=== PATIENT | female | born 1935 | race Caucasian/White ===

== ENCOUNTER 2018-10-01 20:11 | Emergency (ER) | payer MEDICARE, OTHER ==
[~2018-10-01] VITALS: Ht 157.5 cm; Wt 76.6 kg
[2018-10-01 20:15] VITALS: Ht 157.5 cm; Wt 76.6 kg
--- NOTE | 2018-10-01 23:31 | ERD ---
ER Documentation Chief Complaint Chief Complaint [id number]; LEFT FOOT PAIN; MORE XTODAY; CHRONIC ON/OFF;NO INJ; HAS ALZHEIMERS HPI This is a 83-year-old female with a history of chronic she has a chronic foot ulcer, that she cares for at home. She has some redness over her foot for the last few days, she denies fever, denies history of trauma, denies numbness or tingling. ROS All systems reviewed and are negative except as per history of present illness. Medications Home Meds Active Scripts Cephalexin* (Keflex*) 500 Mg Capsule, 500 MG PO QID for 7 Days, CAP Prov:SHANNON DAWSON MD 10/01/18 Sulfamethoxazole/Trimethoprim* (Bactrim Ds* Tablet) 1 Each Tablet, 1 TAB PO BID, #14 TAB Prov:SHANNON DAWSON MD 10/01/18 PMhx/Soc Hx Cardiac Disorders: Yes (HTN) Hx Miscellaneous Medical Probl: Yes ("THYROID PROBLEMS" ) Hx Alcohol Use: No Hx Substance Use: No Hx Tobacco Use: No Smoking Status: Never smoker FmHx Family History: diabetes Physical Exam Vitals Vital Signs Date Temp Pulse Resp B/P (MAP) Pulse Ox O2 O2 Flow FiO2 Time Delivery Rate 10/01/18 74 18 124/97 99 Room Air 22:56 (106) 10/01/18 97.6 73 16 191/63 99 Room Air 22:06 (105) 10/01/18 98.8 80 19 187/73 96 20:15 (111) Physical Exam Const: No acute distress Head: Atraumatic Eyes: Normal Conjunctiva ENT: Normal External Ears, Nose and Mouth. Neck: Full range of motion. No meningismus. Resp: Clear to auscultation bilaterally Cardio: Regular rate and rhythm, no murmurs Abd: Soft, non tender, non distended. Normal bowel sounds Skin: No petechiae or rashes Back: No midline or flank tenderness Ext: Onychomycosis noted bilaterally, there is small superficial ulcer of the great toe, there appears to be first-degree, there is no purulent drainage, there is some erythema of the feet bilaterally, there is no crepitus, no induration, no fluctuance, sensation is intact to light touch, tibial pulses 2+ Neur: Awake and alert Psych: Normal Mood and Affect Result Diagram: 10/01/18224910/01/18 225 Results 24 hrs Laboratory Tests Test 10/01/18 22:50 White Blood Count 9.9 10^3/ul Red Blood Count 4.46 10^6/ul Hemoglobin 13.6 g/dl Hematocrit 41.7 % Mean Corpuscular Volume 93.5 fl Mean Corpuscular Hemoglobin 30.5 pg Mean Corpuscular Hemoglobin Concent 32.6 g/dl Red Cell Distribution Width 12.9 % Platelet Count 165 10^3/UL Mean Platelet Volume 11.1 fl Immature Granulocytes % 0.500 % Neutrophils % 60.0 % Lymphocytes % 28.0 % Monocytes % 8.3 % Eosinophils % 2.6 % Basophils % 0.6 % Nucleated Red Blood Cells % 0.0 /100WBC Immature Granulocytes # 0.050 10^3/ul Neutrophils # 6.0 10^3/ul Lymphocytes # 2.8 10^3/ul Monocytes # 0.8 10^3/ul Eosinophils # 0.3 10^3/ul Basophils # 0.1 10^3/ul Nucleated Red Blood Cells # 0.0 10^3/ul Sodium Level 141 mmol/L Potassium Level 4.7 mmol/L Chloride Level 108 mmol/L Carbon Dioxide Level 25 mmol/L Anion Gap 8 Blood Urea Nitrogen 40 mg/dl Creatinine 0.98 mg/dl Est Glomerular Filtrat Rate mL/min mL/min Glucose Level 102 mg/dl Calcium Level 9.1 mg/dl Procedures/MDM This is a very pleasant 83-year-old female presents for evaluation of left foot pain. She is afebrile and nontoxic-appearing, her lab workup is unremarkable, I do not suspect DVT, I do not suspect osteomyelitis, given her erythema, she is at risk for Down's of cellulitis, thus I will cover her with Bactrim and Keflex, discussed proper wound care, patient is now stable for discharge home, at discharge she was in no acute distress. Departure Diagnosis: Primary Impression: Cellulitis Site of cellulitis: unspecified site Qualified Codes: L03.90 - Cellulitis, unspecified Condition: Stable SHANNON DAWSON MD Oct 01, 2018 23:31
[2018-10-01] MEDS ORDERED: SULF1TAB31 PO (23:33)
[2018-10-01] MEDS ORDERED: CEPH-443 PO (23:33)
[2018-10-02 10:21] VITALS: BP 170/60; PULSE 78; RESP 17
== END 2018-10-02 10:30 | disposition home or self-care (01) ==
LOC: EDBD 20:11 → E/R 20:11
DX: L03.90 Cellulitis, unspecified (principal); I10 Essential (primary) hypertension
CPT/HCPCS: 36415; 80048; 85025

== ENCOUNTER 2018-10-10 14:48 | Inpatient (IN) | payer MEDICARE, OTHER ==
[~2018-10-10] VITALS: Ht 165.1 cm; Wt 75.5 kg
[~2018-10-10 14:48] MED LIST: CEPH-443 PO; SULF1TAB31 PO
[2018-10-10] MEDS ORDERED: ASPI-817 PO (17:07)
[2018-10-10] MEDS ORDERED: AMLO-147 PO (17:07)
[2018-10-10] MEDS ORDERED: GABA300C16 PO (17:08)
[2018-10-10] MEDS ORDERED: DOCU-144 PO (17:08)
[2018-10-10] MEDS ORDERED: LEVO88TA3 PO (17:09)
[2018-10-10] MEDS ORDERED: ATOR10TA65 PO (17:09)
[2018-10-10] MEDS ORDERED: HYDR-4011 PO (17:09)
--- NOTE | 2018-10-10 19:52 | ERD ---
ER Documentation Chief Complaint Chief Complaint Left foot pain HPI 83-year-old female with history of hypertension, dyslipidemia and hypothyroidism presents to the ED via ambulance for evaluation of left foot pain and redness. Patient reports a history of chronic ulcer with worsening redness and sharp, nonradiating pain especially to the fourth toe over the last several weeks. Denies trauma or injury. Patient was seen in the ED on October 01, 2017 and treated with Keflex and Bactrim without improvement. Denies chest pain, palpitations, shortness of breath or abdominal pain, nausea or vomiting. No fevers or chills. ROS All systems reviewed and are negative except as per history of present illness. Medications Home Meds Active Scripts Sulfamethoxazole/Trimethoprim* (Bactrim Ds* Tablet) 1 Each Tablet, 1 TAB PO BID, #14 TAB Prov:KARINA HUTSON 10/12/18 Reported Medications Hydrocodone/Acetaminophen ([place] 5-325 Tablet) 1 Each Tablet, 1 EACH PO NEEDED, TAB 10/10/18 Atorvastatin Calcium (Atorvastatin Calcium) 10 Mg Tablet, 10 MG PO QHS, #30 TAB 10/10/18 Levothyroxine Sodium* (Levothyroxine Sodium*) 88 Mcg Tablet, 88 MCG PO BEFORE BREAKFAST, #30 TAB 10/10/18 Gabapentin* (Gabapentin*) 300 Mg Capsule, 300 MG PO TID, #90 CAP 10/10/18 Docusate Sodium* (Colace*) 100 Mg Capsule, 100 MG PO BID, #60 CAP 10/10/18 Aspirin* (Aspirin* EC) 81 Mg Tablet.dr, 81 MG PO DAILY, TAB 10/10/18 Amlodipine Besylate* (Amlodipine Besylate*) 10 Mg Tablet, 10 MG PO DAILY, #30 TAB 10/10/18 Discontinued Scripts Cephalexin* (Keflex*) 500 Mg Capsule, 500 MG PO QID for 7 Days, CAP Prov:SHANNON DAWSON MD 10/01/18 Allergies Allergies: Coded Allergies: No Known Allergy (Unverified , 10/10/18) PMhx/Soc Reviewed in chart. As per HPI. Lives in a boarding care facility. History of Surgery: Yes (Left hip) Hx Neurological Disorder: Yes (Dementia) Hx Cardiac Disorders: Yes (HTN) Hx Psychiatric Problems: No Hx Miscellaneous Medical Probl: Yes ("THYROID PROBLEMS" ) Hx Alcohol Use: No Hx Substance Use: No Hx Tobacco Use: No Smoking Status: Never smoker FmHx No family history relevant to presenting complaint Physical Exam Vitals Vital Signs Date Temp Pulse Resp B/P (MAP) Pulse Ox O2 O2 Flow FiO2 Time Delivery Rate 10/10/18 73 22 140/92 96 Room Air 21:42 (108) 10/10/18 83 20 145/48 96 Room Air 20:34 (80) 10/10/18 99.0 73 18 156/70 98 15:11 (98) Physical Exam Const: Moderate distress, anxious Head: Atraumatic Eyes: Normal Conjunctiva. Anicteric ENT: Normal External Ears, Nose and Mouth. Neck: Full range of motion. No JVD. No meningismus. Resp: Clear to auscultation bilaterally Cardio: Regular rate and rhythm, no murmurs Abd: Soft, obese, non tender, non distended. Normal bowel sounds Skin: No petechiae or rashes Back: No midline or flank tenderness Ext: Bilateral lower extremities: No edema, calf swelling or tenderness. Pulses 4+ in all extremities. Left foot: Diffuse erythema, tenderness extending from the toes to above the ankle. No fluctuance or subcutaneous crepitus. No lymphangitic streaking. No inguinal lymphadenopathy or tenderness. Neur: Awake and alert. Cranial nerves II through XII are grossly intact. Motor and sensory equal bilaterally. No focal deficit. Psych: Anxious but not depressed. Result Diagram: 10/12/18 0452 10/12/18 0452 Results 24 hrs Laboratory Tests Test 10/10/18 18:39 White Blood Count 7.7 10^3/ul Red Blood Count 4.37 10^6/ul Hemoglobin 13.5 g/dl Hematocrit 41.1 % Mean Corpuscular Volume 94.1 fl Mean Corpuscular Hemoglobin 30.9 pg Mean Corpuscular Hemoglobin Concent 32.8 g/dl Red Cell Distribution Width 13.2 % Platelet Count 231 10^3/UL Mean Platelet Volume 10.6 fl Immature Granulocytes % 0.100 % Neutrophils % 60.7 % Lymphocytes % 28.9 % Monocytes % 6.5 % Eosinophils % 3.3 % Basophils % 0.5 % Nucleated Red Blood Cells % 0.0 /100WBC Immature Granulocytes # 0.010 10^3/ul Neutrophils # 4.7 10^3/ul Lymphocytes # 2.2 10^3/ul Monocytes # 0.5 10^3/ul Eosinophils # 0.3 10^3/ul Basophils # 0.0 10^3/ul Nucleated Red Blood Cells # 0.0 10^3/ul Sodium Level 140 mmol/L Potassium Level 4.6 mmol/L Chloride Level 108 mmol/L Carbon Dioxide Level 25 mmol/L Anion Gap 7 Blood Urea Nitrogen 27 mg/dl Creatinine 1.10 mg/dl Est Glomerular Filtrat Rate mL/min mL/min Glucose Level 102 mg/dl Calcium Level 9.6 mg/dl C-Reactive Protein < 0.5 mg/dl Current Medications Medications Dose Sig/Trisha Start Time Status Last (Trade) Ordered Route PRN Stop Time Admin Dose Reason Admin Vancomycin 250 ml @ ONCE ONCE 10/10/18 DC 10/10/18 HCl 125 mls/hr IVPB 20:00 20:02 10/10/18 21:59 Procedures/MDM DOCUMENTS REVIEWED: ED nurse, prior ED IMAGING: PROCEDURE: X-ray left foot. CLINICAL INDICATION: Cellulitis. TECHNIQUE: AP, lateral and oblique views of the left foot. COMPARISON: Plain film examination of the left foot dated 10/01/2018. FINDINGS: Demineralization limits evaluation of fine osseous detail. No evident acute fracture or dislocation. Question resorption of the tuft at the second distal phalanx, without significant exchange mechanic interval. If there is concern for osteomyelitis an MRI examination would be more sensitive and specific. Plantar and posterior dorsal calcaneal enthesophytes. The soft tissues are unr emarkable. There is no significant exchange mechanic interval since 10/01/2018. IMPRESSION: 1. Question resorption of the tuft at the second distal phalanx, without significant exchange mechanic interval. 2. If there is concern for osteomyelitis an MRI examination would be more sensitive and specific. 3. Otherwise, no acute fracture. RPTAT: [facility]U Physician Hal Date Time Electronically viewed and signed by Physician Hal on 10/10/2018 18:53 RS/ MEDICAL DECISION MAKIN-year-old female with history of hypertension, dyslipidemia and hypothyroidism presents to the ED via ambulance for evaluation of left foot pain and redness. Patient reports a history of chronic ulcer with worsening redness and sharp, nonradiating pain especially to the fourth toe over the last several weeks. CBC to evaluate for leukocytosis and anemia is unremarkable. Chemistry reveals elevated BUN/creatinine mildly worsening since previous ED visit on October 01 but no acute electrolyte abnormalities. Radiographs of the left foot to evaluate for fracture, osteomyelitis and subcutaneous emphysema reveals findings that may be secondary to osteomyelitis and further evaluation with MRI should be considered. No evidence of abscess or necrotizing fasciitis. No criteria for systemic inflammatory response syndrome or sepsis. IV vancomycin administered. Poorly controlled hypertension without evidence of hypertensive urgency or emergency. Patient with worsening cellulitis failed outpatient antibiotics will require admission for local wound care, antibiotics, further evaluation and management. PATIENT CARE TRANSITIONED: Time: 2009, Dr. Todd Counseled patient regarding diagnosis, diagnostic results and plan for admission. Departure Diagnosis: Primary Impression: Foot pain Laterality: left Qualified Codes: M79.672 - Pain in left foot Additional Impressions: Cellulitis of left foot Hypertension Hypertension type: essential hypertension Qualified Codes: I10 - Essential (primary) hypertension Condition: Serious GARRISON PEREZ MD Oct 10, 2018 19:52
[2018-10-10] MEDS ORDERED: VANCOMYCIN 1 GM (PMX) 250 ML IVPB ONE (20:00)
[2018-10-10] MEDS ORDERED: ONDANSETRON 4 MG INJ IV PRN (22:00)
[2018-10-10] MEDS ORDERED: ACETAMINOPHEN 325 MG TAB PO PRN (22:00)
[2018-10-10 22:50] VITALS: BP 164/77; PULSE 64; RESP 16
[2018-10-10 22:53] VITALS: Ht 165.1 cm; Wt 75.5 kg
--- NOTE | 2018-10-10 23:50 | HP ---
Date/Time of Note Date/Time of Note DATE: 10/10/18 TIME: 23:50 Assessment/Plan VTE Prophylaxis Risk score (from Ns)>0 risk: 4 SCD applied (from Ns): Yes Pharmacological prophylaxis: heparin Lines/Catheters IV Catheter Type (from Nrs): Saline Lock Assessment/Plan Assessment/Plan 1. Left foot cellulitis: Failed outpatient management -IV antibiotic 2. Hypertension: Continue home meds. Adjust as needed 3. Hypothyroidism: Continue Synthroid 4. Dyslipidemia: Continue statin 5. 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 Additional workup including renal ultrasound and nephrology consult as needed Result Diagram: 10/10/18 1839 10/10/18 1839 Results 24hrs Laboratory Tests Test 10/10/18 18:39 White Blood Count 7.7 # Red Blood Count 4.37 Hemoglobin 13.5 Hematocrit 41.1 Mean Corpuscular Volume 94.1 Mean Corpuscular Hemoglobin 30.9 Mean Corpuscular Hemoglobin Concent 32.8 Red Cell Distribution Width 13.2 Platelet Count 231 # Mean Platelet Volume 10.6 H Immature Granulocytes % 0.100 Neutrophils % 60.7 Lymphocytes % 28.9 Monocytes % 6.5 Eosinophils % 3.3 Basophils % 0.5 Nucleated Red Blood Cells % 0.0 Immature Granulocytes # 0.010 Neutrophils # 4.7 Lymphocytes # 2.2 Monocytes # 0.5 Eosinophils # 0.3 Basophils # 0.0 Nucleated Red Blood Cells # 0.0 Sodium Level 140 Potassium Level 4.6 Chloride Level 108 Carbon Dioxide Level 25 Anion Gap 7 Blood Urea Nitrogen 27 H Creatinine 1.10 H Est Glomerular Filtrat Rate mL/min Glucose Level 102 Calcium Level 9.6 C-Reactive Protein < 0.5 HPI/ROS Admit Date/Time Admit Date/Time Oct 10, 2018 at 21:49 Hx of Present Illness This is an 83-year-old female with a history of hypertension, dyslipidemia, hypothyroidism and a likely bilateral PVD who presents the ER complaining of left foot redness and tenderness. She said she first noticed it about a month ago for which she went to the hospital and was diagnosed with a cellulitis. She took antibiotic with initial improvement but recurred and as such she decided to come to the hospital for evaluation. In the ER, x-ray of the left foot shows the followin. Question resorption of the tuft at the second distal phalanx, without significant foreign exchange trader interval. 2. If there is concern for osteomyelitis an MRI examination would be more sensitive and specific. 3. Otherwise, no acute fracture. PMH/Family/Social Past Medical History Medications Current Medications Ondansetron HCl (Zofran Inj) 4 mg BRIDGE ORDER PRN IV NAUSEA AND/OR VOMITING; Start 10/10/18 at 22:00; Stop 10/11/18 at 21:59 Acetaminophen (Tylenol Tab) 650 mg ER BRIDGE PRN PO MILD PAIN(1-3)OR ELEVATED TEMP; Start 10/10/18 at 22:00; Stop 10/11/18 at 21:59 Coded Allergies: No Known Allergy (Unverified , 10/10/18) Family History Significant Family History: no pertinent family hx Social History Alcohol Use: none Smoking Status: Never smoker Drug Use: none Exam/Review of Systems Vital Signs Vitals Vital Signs Date Temp Pulse Resp B/P (MAP) Pulse Ox O2 O2 Flow FiO2 Time Delivery Rate 10/10/18 97.9 64 16 164/77 98 22:50 (106) 10/10/18 Room Air 22:28 Exam Exam Constitutional: alert, oriented, well developed, other Head: normocephalic, atraumatic Respiratory: normal air movement Cardiovascular: regular rate and rhythm Gastrointestinal: soft Extremities: normal pulses PMH: see HPI PSH: see HPI . UMANG MEHTA MD Oct 10, 2018 23:50
[2018-10-11] MEDS ORDERED: HYDROCODONE/APAP (5/325) TAB PO PRN ×2
[2018-10-11] MEDS ORDERED: ONDANSETRON 4 MG INJ IV PRN
[2018-10-11] MEDS ORDERED: ACETAMINOPHEN 325 MG TAB PO PRN
[2018-10-11] MEDS ORDERED: ALBUTEROL/IPRATROPIUM (NEB) 3 ML AMP HHN PRN
[2018-10-11] MEDS ORDERED: NACL 0.9% 3 ML SYG IV SCH
[2018-10-11 01:37] VITALS: BP 150/67; PULSE 66; RESP 18
[2018-10-11] MEDS: LEVOTHYROXINE 88 MCG TAB PO SCH (06:22)
[2018-10-11 07:36] VITALS: BP 197/77; PULSE 66; RESP 16
[2018-10-11] MEDS ORDERED: TRIMETHOPRIM/SULFAMETHOX (DS) TAB PO SCH (09:00)
[2018-10-11] MEDS: HEPARIN 5,000 UNIT/1 ML VIAL SC SCH ×2 (09:00→21:28)
[2018-10-11] MEDS: GABAPENTIN 300 MG CAP PO SCH ×3 (09:03→21:21)
[2018-10-11] MEDS: DOCUSATE SODIUM 100 MG CAP PO SCH ×2 (09:03→21:21)
[2018-10-11] MEDS: ASPIRIN (EC) 81 MG TAB PO SCH (09:04)
[2018-10-11] MEDS: AMLODIPINE 10 MG TAB PO SCH (09:04)
[2018-10-11] MEDS: hydrALAzine 20 MG INJ IV PRN (09:11)
[2018-10-11 10:27] VITALS: BP 163/73; PULSE 80; RESP 20
--- NOTE | 2018-10-11 11:57 | PN ---
Date/Time of Note Date/Time of Note DATE: 10/11/18 TIME: 11:54 Assessment/Plan VTE Prophylaxis Risk score (from [facility])>0 risk: 5 SCD applied (from [facility]): No SCD contraindicated: other Pharmacological prophylaxis: heparin Lines/Catheters IV Catheter Type (from [facility]): Saline Lock Assessment/Plan Hospital Course S: Patient had no acute events overnight. O: VS - see below PE: General: No acute distress Head: Atraumatic Eyes: Normal Conjunctiva ENT: Normal External Ears, Nose and Mouth. Neck: Full range of motion. No meningismus. Resp: Clear to auscultation bilaterally Cardio: Regular rate and rhythm, no murmurs Abd: Soft, non tender, non distended. Normal bowel sounds Ext: Left foot red but not warm, dry skin noted Neur: No focal deficits Assessment/Plan: 83-year-old female who presents with: 1. Left foot cellulitis: Failed outpatient management. White blood cell count is normal, no fevers, x-ray foot results noted. -For now continue IV antibiotic -Follow final culture results, and also will get wound care consult 2. Hypertension: Stable - continue home meds. Adjust as needed 3. Hypothyroidism: No present issues - continue Synthroid 4. Dyslipidemia: No present issues - continue statin 5. Presumed KOTA: Creatinine slightly elevated at 1.13. -Continue IVF for now. -If creatinine worsens, consider additional workup including renal ultrasound and nephrology consult as needed Dispo: Likely home in 24 hours after IV antibiotics given, wound care consult obtained, and if kidney function improves with fluids Result Diagram: 10/11/18 0435 10/11/18 0435 Results 24hrs Laboratory Tests Test 10/10/18 18:39 10/11/18 04:35 White Blood Count 7.7 # 6.2 Red Blood Count 4.37 4.14 L Hemoglobin 13.5 12.7 Hematocrit 41.1 39.0 Mean Corpuscular Volume 94.1 94.2 Mean Corpuscular Hemoglobin 30.9 30.7 Mean Corpuscular Hemoglobin Concent 32.8 32.6 Red Cell Distribution Width 13.2 13.4 Platelet Count 231 # 218 Mean Platelet Volume 10.6 H 10.6 H Immature Granulocytes % 0.100 0.200 Neutrophils % 60.7 55.6 Lymphocytes % 28.9 30.1 Monocytes % 6.5 9.4 Eosinophils % 3.3 3.9 Basophils % 0.5 0.8 Nucleated Red Blood Cells % 0.0 0.0 Immature Granulocytes # 0.010 0.010 Neutrophils # 4.7 3.4 Lymphocytes # 2.2 1.9 Monocytes # 0.5 0.6 Eosinophils # 0.3 0.2 Basophils # 0.0 0.1 Nucleated Red Blood Cells # 0.0 0.0 Sodium Level 140 146 H Potassium Level 4.6 4.8 Chloride Level 108 109 Carbon Dioxide Level 25 24 Anion Gap 7 13 Blood Urea Nitrogen 27 H 29 H Creatinine 1.10 H 1.13 H Est Glomerular Filtrat Rate mL/min Glucose Level 102 83 Calcium Level 9.6 9.2 C-Reactive Protein < 0.5 Phosphorus Level 4.3 Magnesium Level 2.1 Total Bilirubin 0.3 Direct Bilirubin 0.00 Indirect Bilirubin 0.3 Aspartate Amino Transf (AST/SGOT) 28 Alanine Aminotransferase (ALT/SGPT) 17 Alkaline Phosphatase 62 Total Protein 7.1 Albumin 3.7 Globulin 3.40 H Albumin/Globulin Ratio 1.08 Exam/Review of Systems Vital Signs Vitals Vital Signs Date Temp Pulse Resp B/P (MAP) Pulse Ox O2 O2 Flow FiO2 Time Delivery Rate 10/11/18 80 20 163/73 10:27 (103) 10/11/18 98.4 97 07:36 10/10/18 Room Air 22:28 Intake and Output 10/10/18 10/10/18 10/11/18 1515:00 23:00 07:00 IntakeIntake Total 250 ml BalanceBalance 250 ml Medications Medications Current Medications Ondansetron HCl (Zofran Inj) 4 mg BRIDGE ORDER PRN IV NAUSEA AND/OR VOMITING; Start 10/10/18 at 22:00; Stop 10/11/18 at 21:59 IV Flush (NS 3 ml) 3 ml PER PROTOCOL IV ; Start 10/11/18 at 00:00 Ondansetron HCl (Zofran Inj) 4 mg Q6H PRN IV NAUSEA AND/OR VOMITING; Start 10/11/18 at 00:00 Acetaminophen (Tylenol Tab) 650 mg Q6H PRN PO PAIN LEVEL 1-3 OR FEVER; Start 10/11/18 at 00:00 Acetaminophen/ Hydrocodone Bitart ([place] (5/325)) 1 tab Q6H PRN PO MODERATE PAIN LEVEL 4-6; Start 10/11/18 at 00:00 Acetaminophen/ Hydrocodone Bitart ([place] (5/325)) 2 tab Q6H PRN PO SEVERE PAIN LEVEL 7-10; Start 10/11/18 at 00:00 Heparin Sodium (Porcine) (Heparin (5000 Units/1ml)) 5,000 unit Q12 SC ; Start 10/11/18 at 09:00 Albuterol/ Ipratropium (Duoneb) 3 ml Q2H RESP THERAPY PRN HHN SHORTNESS OF BREATH; Start 10/11/18 at 00:00 Amlodipine Besylate (Norvasc) 10 mg DAILY PO Last administered on 10/11/18at 09 :04; Admin Dose 10 MG; Start 10/11/18 at 09:00 Aspirin (Halfprin) 81 mg DAILY PO Last administered on 10/11/18at 09:04; Admin Dose 81 MG; Start 10/11/18 at 09:00 Atorvastatin Calcium (Lipitor) 10 mg QHS PO ; Start 10/11/18 at 21:00 Docusate Sodium (Colace) 100 mg BID PO Last administered on 10/11/18at 09:03; Admin Dose 100 MG; Start 10/11/18 at 09:00 Gabapentin (Neurontin) 300 mg TID PO Last administered on 10/11/18at 09:03; Admin Dose 300 MG; Start 10/11/18 at 09:00 Levothyroxine Sodium (Synthroid) 88 mcg BEFORE BREAKFAST PO Last administered on 10/11/18at 06:22; Admin Dose 88 MCG; Start 10/11/18 at 07:00 Trimethoprim/ Sulfamethoxazole (Bactrim (Ds)) 1 tab BID PO Last administered on 10/11/18at 09:04; Admin Dose 1 TAB; Start 10/11/18 at 09:00; Status Hold Hydralazine HCl (Apresoline) 10 mg Q4H PRN IV ELEVATED BLOOD PRESSURE Last administered on 10/11/18at 09:11; Admin Dose 10 MG; Start 10/11/18 at 08:37 Sodium Chloride 1,000 ml @ 100 mls/hr Q10H IV ; Start 10/11/18 at 12:00; Statu s UNV Ceftriaxone Sodium 50 ml @ 100 mls/hr Q24H IVPB ; Start 10/11/18 at 12:00; Status JAXONV KARINA HUTSON Oct 11, 2018 11:57
[2018-10-11] MEDS: CEFTRIAXONE 1 GM/50 ML (PMX) 50 ML IVPB SCH (13:08)
[2018-10-11] MEDS: SOD CHLORIDE 0.45% 1,000 ML IV SCH ×2 (13:09→23:47)
[2018-10-11 13:56] VITALS: BP 147/67; PULSE 77; RESP 16
[2018-10-11 19:51] VITALS: BP 157/66; PULSE 67; RESP 18
[2018-10-11] MEDS ORDERED: ATORVASTATIN 10 MG TAB PO SCH (21:00)
[2018-10-12 01:12] VITALS: BP 165/91; PULSE 72; RESP 16
[2018-10-12] MEDS: hydrALAzine 20 MG INJ IV PRN ×2 (05:38→17:16)
[2018-10-12] MEDS: LEVOTHYROXINE 88 MCG TAB PO SCH (05:39)
[2018-10-12 07:44] VITALS: BP 165/70; PULSE 73; RESP 18
[2018-10-12] MEDS: ASPIRIN (EC) 81 MG TAB PO SCH (08:58)
[2018-10-12] MEDS: DOCUSATE SODIUM 100 MG CAP PO SCH (08:58)
[2018-10-12] MEDS: AMLODIPINE 10 MG TAB PO SCH (08:58)
[2018-10-12] MEDS: GABAPENTIN 300 MG CAP PO SCH ×2 (08:58→12:27)
[2018-10-12] MEDS: HEPARIN 5,000 UNIT/1 ML VIAL SC SCH (09:04)
[2018-10-12] MEDS: SOD CHLORIDE 0.45% 1,000 ML IV SCH (09:15)
[2018-10-12] MEDS: CEFTRIAXONE 1 GM/50 ML (PMX) 50 ML IVPB SCH (11:50)
--- NOTE | 2018-10-12 13:06 | PDOCDIS ---
Discharge Instructions CONDITION [id number] Patient Condition: [id number] Stable HOME CARE INSTRUCTIONS: [id number] Diet Instructions: [id number] Low Fat /Cholesterol ACTIVITY: [id number] Activity Restrictions: [id number] Slowly Increase Activity Rest between Activity Avoid heavy lifting FOLLOW UP/APPOINTMENTS Follow-up Plan Please take your medication as prescribed, see your doctor in the clinic next 1 week. KARINA HUTSON Oct 12, 2018 13:06
[2018-10-12] MEDS ORDERED: SULF1TAB31 PO (13:07)
--- NOTE | 2018-10-12 13:14 | DS ---
Date/Time of Note Date/Time of Note DATE: 10/12/18 TIME: 13:11 Discharge Summary Admission/Discharge Info Admit Date/Time Oct 10, 2018 at 21:49 Discharge Date/Time Discharge Diagnosis 1. Left foot cellulitis: Now improved, initially failed outpatient management 2. Hypertension: Stable 3. Hypothyroidism 4. Dyslipidemia 5. KOTA: Resolved now Patient Condition: Stable Hx of Present Illness 83-year-old female with a history of hypertension, dyslipidemia, hypothyroidism and a likely bilateral PVD who presents the ER complaining of left foot redness and tenderness. She said she first noticed it about a month ago for which she went to the hospital and was diagnosed with a cellulitis. She took antibiotic with initial improvement but recurred and as such she decided to come to the hospital for evaluation. In the ER, x-ray of the left foot shows the followin. Question resorption of the tuft at the second distal phalanx, without significant blade changer interval. 2. If there is concern for osteomyelitis an MRI examination would be more sensitive and specific. 3. Otherwise, no acute fracture. Hospital Course The patient was admitted to medical surgical unit. She was placed on IV antibiotics and IV fluids. Her renal insufficiency resolved. Regarding her cellulitis, this was also thought to be possibly more of an erysipelas. Her white blood cell count remained stable, she had no fevers. Her redness symptoms improved. She was able to ambulate after being seen by physical therapy team, tolerated p.o. diet. We are waiting for the wound nurse to see the patient since she did have some dry skin on the lower extremity, however once that is performed patient will be discharged home today improved condition. See below for full list of discharge medications. Home Meds Active Scripts Sulfamethoxazole/Trimethoprim* (Bactrim Ds* Tablet) 1 Each Tablet, 1 TAB PO BID, #14 TAB Prov:KARINA HUTSON S. 10/12/18 Reported Medications Hydrocodone/Acetaminophen ([place] 5-325 Tablet) 1 Each Tablet, 1 EACH PO NEEDED, TAB 10/10/18 Atorvastatin Calcium (Atorvastatin Calcium) 10 Mg Tablet, 10 MG PO QHS, #30 TAB 10/10/18 Levothyroxine Sodium* (Levothyroxine Sodium*) 88 Mcg Tablet, 88 MCG PO BEFORE BREAKFAST, #30 TAB 10/10/18 Gabapentin* (Gabapentin*) 300 Mg Capsule, 300 MG PO TID, #90 CAP 10/10/18 Docusate Sodium* (Colace*) 100 Mg Capsule, 100 MG PO BID, #60 CAP 10/10/18 Aspirin* (Aspirin* EC) 81 Mg Tablet.dr, 81 MG PO DAILY, TAB 10/10/18 Amlodipine Besylate* (Amlodipine Besylate*) 10 Mg Tablet, 10 MG PO DAILY, #30 TAB 10/10/18 Discontinued Scripts Cephalexin* (Keflex*) 500 Mg Capsule, 500 MG PO QID for 7 Days, CAP Prov:SHANNON DAWSON MD 10/01/18 Follow-up Plan Please take your medication as prescribed, see your doctor in the clinic next 1 week. Primary Care Provider Not On Staff Doctor Time spent on discharge: > 30 minutes Pending Labs Laboratory Tests Test 10/12/18 04:52 White Blood Count 6.1 10^3/ul (4.8-10.8) Red Blood Count 4.21 10^6/ul (4.20-5.40) Hemoglobin 13.0 g/dl (12.0-16.0) Hematocrit 39.6 % (37.0-47.0) Mean Corpuscular Volume 94.1 fl (82.0-101.0) Mean Corpuscular Hemoglobin 30.9 pg (29.0-33.0) Mean Corpuscular Hemoglobin Concent 32.8 g/dl (32.0-37.0) Red Cell Distribution Width 13.5 % (11.5-14.5) Platelet Count 209 10^3/UL (140-415) Mean Platelet Volume 10.5 fl (7.4-10.4) Immature Granulocytes % 0.200 % (0.001-0.429) Neutrophils % 49.9 % (39.0-77.0) Lymphocytes % 38.1 % (15.0-51.0) Monocytes % 7.2 % (0.0-11.0) Eosinophils % 3.8 % (0.0-7.0) Basophils % 0.8 % (0.0-2.0) Nucleated Red Blood Cells % 0.0 /100WBC (0.0-0.0) Immature Granulocytes # 0.010 10^3/ul (0.0-0.031) Neutrophils # 3.0 10^3/ul (1.6-7.5) Lymphocytes # 2.3 10^3/ul (0.8-2.9) Monocytes # 0.4 10^3/ul (0.3-0.9) Eosinophils # 0.2 10^3/ul (0.0-0.5) Basophils # 0.1 10^3/ul (0.0-0.1) Nucleated Red Blood Cells # 0.0 10^3/ul (0.0-0.0) Sodium Level 141 mmol/L (135-144) Potassium Level 4.3 mmol/L (3.5-5.1) Chloride Level 109 mmol/L (97-110) Carbon Dioxide Level 25 mmol/L (21-31) Anion Gap 7 (5-13) Blood Urea Nitrogen 22 mg/dl (7-20) Creatinine 0.92 mg/dl (0.44-1.00) Est Glomerular Filtrat Rate mL/min mL/min (>60) Glucose Level 89 mg/dl (70-220) Calcium Level 9.0 mg/dl (8.4-10.2) KARINA HUTSON Oct 12, 2018 13:13
[2018-10-12 14:26] VITALS: BP 167/66; PULSE 72; RESP 18
[2018-10-12 17:27] VITALS: BP 138/64; PULSE 72
== END 2018-10-12 17:30 | disposition home or self-care (01) | DRG 603 ==
LOC: E/R 14:48 → 2NE 21:49
PROVIDERS: ADMIT Internal Medicine; ATTEND Hospitalist
DX: L03.116 Cellulitis of left lower limb (principal); N17.9 Acute kidney failure, unspecified; I10 Essential (primary) hypertension; E03.9 Hypothyroidism, unspecified; E78.5 Hyperlipidemia, unspecified; I73.9 Peripheral vascular disease, unspecified
CPT/HCPCS: 80048; 80053; 83036; 83735; 84100; 85025; 86140; 96365; 96366; 97161; J0360; J0696; J1644; J3370

== ENCOUNTER 2019-02-05 01:05 | Inpatient (IN) | payer MEDICARE, OTHER ==
[~2019-02-05] VITALS: Ht 162.6 cm; Wt 76.9 kg
[~2019-02-05 01:05] MED LIST changes: +AMLO-147 PO; +ASPI-817 PO; +ATOR10TA65 PO; -CEPH-443 PO; +DOCU-144 PO; +GABA300C16 PO; +HYDR-4011 PO; +LEVO88TA3 PO
[2019-02-05] MEDS ORDERED: PIPER-TAZO 3.375 GM IV (PMX) 100 ML IVPB STA (01:18)
[2019-02-05] MEDS ORDERED: VANCOMYCIN 1 GM (PMX) 250 ML IVPB STA (01:18)
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
[2019-02-05] MEDS ORDERED: morphine 4 MG/ML VIAL IV STA (01:50)
[2019-02-05 03:10] VITALS: BP 150/67; PULSE 69; RESP 19
[2019-02-05 03:13] VITALS: Ht 162.6 cm; Wt 76.9 kg
[2019-02-05] MEDS ORDERED: NACL 0.9% 3 ML SYG IV SCH (04:30)
[2019-02-05] MEDS ORDERED: ONDANSETRON 4 MG INJ IV PRN (04:30)
[2019-02-05] MEDS ORDERED: HYDROCODONE/APAP (5/325) TAB PO PRN ×2 (04:30)
[2019-02-05] MEDS ORDERED: VANCOMYCIN IV PER PHARMACY XX SCH (05:30)
[2019-02-05] MEDS ORDERED: VANCOMYCIN HCL 1.5 GM in SOD CHLORIDE 0.9% 250 ML IVPB SCH ×2 (06:00→12:00)
--- NOTE | 2019-02-05 06:13 | HP ---
Date/Time of Note Date/Time of Note DATE: 02/05/19 TIME: 06:09 Assessment/Plan VTE Prophylaxis Pharmacological prophylaxis: heparin Lines/Catheters IV Catheter Type (from Nrsg): [place] Assessment/Plan Assessment/Plan 1. Right foot cellulitis -IV antibiotic 2. Hypertension: Continue home meds. Adjust as needed 3. Hypothyroidism: Continue Synthroid 4. Dyslipidemia: Continue statin Result Diagram: 02/05/19 0143 02/05/19 0143 Results 24hrs Laboratory Tests Test 02/05/19 01:39 02/05/19 01:40 02/05/19 01:43 02/05/19 04:33 Bedside Glucose 98 POC Venous Lactate 0.7 White Blood Count 9.1 # Red Blood Count 4.44 Hemoglobin 13.5 Hematocrit 40.7 Mean Corpuscular 91.7 Volume Mean Corpuscular 30.4 Hemoglobin Mean Corpuscular 33.2 Hemoglobin Concent Red Cell 13.0 Distribution Width Platelet Count 255 # Mean Platelet Volume 11.1 H Immature 0.300 Granulocytes % Neutrophils % 65.1 Lymphocytes % 24.1 Monocytes % 8.1 Eosinophils % 2.0 Basophils % 0.4 Nucleated Red Blood 0.0 Cells % Immature 0.030 Granulocytes # Neutrophils # 5.9 Lymphocytes # 2.2 Monocytes # 0.7 Eosinophils # 0.2 Basophils # 0.0 Nucleated Red Blood 0.0 Cells # Erythrocyte 48 H Sedimentation Rate Prothrombin Time 13.1 Prothrombin Time 1.0 Ratio INR International 0.98 Normalized Ratio Activated 29.0 Partial Thromboplast Time Sodium Level 142 Potassium Level 4.4 Chloride Level 106 Carbon Dioxide Level 26 Anion Gap 10 Blood Urea Nitrogen 27 H Creatinine 0.81 Est Glomerular Filtrat Rate mL/min Glucose Level 101 Lactic Acid Level 1.1 1.1 Calcium Level 9.5 Total Bilirubin 0.4 Direct Bilirubin 0.00 Indirect Bilirubin 0.4 Aspartate Amino 23 Transf (AST/SGOT) Alanine 22 Aminotransferase (AL T/SGPT) Alkaline Phosphatase 88 Troponin I < 0.012 C-Reactive Protein 1.6 H Total Protein 7.9 Albumin 3.9 Globulin 4.00 H Albumin/Globulin 0.97 Ratio HPI/ROS Admit Date/Time Admit Date/Time February 05, 2019 at 02:16 Hx of Present Illness Patient is an 83-year-old female with a history of hypertension, dyslipidemia, hypothyroidism in the left foot cellulitis who presents the ER complaining of left foot swelling, tenderness and erythema. Patient was admitted here in September of this year and was treated for left foot cellulitis. She has a significant onychomycosis. On presents the ER, she was febrile, WBC WNL. Venous study negative for DVT and x-ray of the right foot shows cellulitis without osteomyelitis PMH/Family/Social Past Medical History Medical History: high cholesterol, hypertension, hypothyroid Medications Current Medications IV Flush (NS 3 ml) 3 ml PER PROTOCOL IV ; Start 02/05/19 at 04:30 Ondansetron HCl (Zofran Inj) 4 mg Q6H PRN IV NAUSEA/VOMITING; Start 02/05/19 at 04:30 Acetaminophen (Tylenol Tab) 650 mg Q6H PRN PO .PAIN 1-3 OR TEMP; Start 02/05/19 at 04:30 Acetaminophen/ Hydrocodone Bitart ([place] (5/325)) 1 tab Q6H PRN PO .MOD PAIN 4- 6; Start 02/05/19 at 04:30 Acetaminophen/ Hydrocodone Bitart ([place] (5/325)) 2 tab Q6H PRN PO .SEVERE PAIN 7-10; Start 02/05/19 at 04:30 Amlodipine Besylate (Norvasc) 10 mg DAILY PO ; Start 02/05/19 at 09:00 Aspirin (Halfprin) 81 mg DAILY PO ; Start 02/05/19 at 09:00 Atorvastatin Calcium (Lipitor) 10 mg QHS PO ; Start 02/05/19 at 21:00 Docusate Sodium (Colace) 100 mg BID PO ; Start 02/05/19 at 09:00 Gabapentin (Neurontin) 300 mg TID PO ; Start 02/05/19 at 09:00 Levothyroxine Sodium (Synthroid) 88 mcg BEFORE BREAKFAST PO ; Start 02/05/19 at 07:00 Vancomycin HCl (Vanco Iv Per Pharmacy) VANCOMYCIN PER PHARMACY PER PROTOCOL XX ; Start 02/05/19 at 05:30 Ceftriaxone Sodium 50 ml @ 100 mls/hr DAILY IVPB ; Start 02/05/19 at 09:00 Vancomycin HCl 1.5 gm/Sodium Chloride 250 ml @ 83.333 mls/ hr ONCE IVPB Last administered on 02/05/19at 06:08; Admin Dose 83.333 MLS/HR; Start 02/05/19 at 06:00; Stop 02/05/19 at 08:59 Coded Allergies: No Known Allergy (Unverified , 10/10/18) Past Surgical History Past Surgical Hx: other (See HPI) Family History Significant Family History: no pertinent family hx Social History Alcohol Use: none Smoking Status: Never smoker Drug Use: none Exam/Review of Systems Vital Signs Vitals Vital Signs Date Temp Pulse Resp B/P (MAP) Pulse Ox O2 O2 Flow FiO2 Time Delivery Rate 02/05/19 98.4 69 19 150/67 98 Room Air 03:10 (94) Exam Constitutional: other (No acute distress) Head: normocephalic, atraumatic Eyes: EOMI, PERRL Respiratory: clear to auscultation, normal air movement Cardiovascular: regular rate and rhythm, nl pulses Gastrointestinal: soft, non-tender Extremities: other (Left foot swelling and erythema) UMANG MEHTA MD February 05, 2019 06:12
[2019-02-05] MEDS: LEVOTHYROXINE 88 MCG TAB PO SCH (06:24)
[2019-02-05 07:41] VITALS: BP 167/67; PULSE 58; RESP 18
[2019-02-05] MEDS: CEFTRIAXONE 1 GM/50 ML (PMX) 50 ML IVPB SCH (08:55)
[2019-02-05] MEDS: DOCUSATE SODIUM 100 MG CAP PO SCH ×2 (08:55→21:00)
[2019-02-05] MEDS: GABAPENTIN 300 MG CAP PO SCH ×3 (08:56→21:01)
[2019-02-05] MEDS: ASPIRIN (EC) 81 MG TAB PO SCH (08:56)
[2019-02-05] MEDS: AMLODIPINE 10 MG TAB PO SCH (08:56)
--- NOTE | 2019-02-05 11:55 | QN ---
Documentation Comment 83 yo F w/ recent left foot cellulitis,htn,dyslipidemia,neuropathy, hypothyroid admitted for Rt foot cellulitis.. Patient with no palpable pulse appreciated on right DP. At this time, we we will proceed with right lower extremity arterial/venous study. Podiatry consult and consider vascular evaluation depending arterial studies. Continue antimicrobials. Case discussed with Dr. Hodges. JULY JOHNSON NP February 05, 2019 11:55
--- NOTE | 2019-02-05 13:50 | CONS ---
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 Patient had negative DVT findings. Non invasive arterial studies pending. Patient will likely need a vascular consult for evaluation. Continue with IV abx per recommendations. Betadine dressings to the right foot partial thickness wound site with dry sterile dressings. Consultation Date/Type/Reason Admit Date/Time February 05, 2019 at 02:16 Date/Time of Note DATE: 02/05/19 TIME: 13:45 Hx of Present Illness 83-year-old female with a history of hypertension, dyslipidemia, and hypothyroidism, presents to the floor with complaint of pain to bilateral feet right worse than left and concern for cellulitis to the right foot. Patient was treated previously for cellulitis to the feet back in September. Patient also mentioned that she has peripheral vascular disease and that she had followed a specialist but does not remember the name or location of the follow up. It is also difficult to discern whether or not she had any open ulcerations in the past. ROS Negative except for HPI Past Medical History Medical History: high cholesterol, hypertension, hypothyroid Home Meds Active Scripts Sulfamethoxazole/Trimethoprim* (Bactrim Ds* Tablet) 1 Each Tablet, 1 TAB PO BID, #14 TAB Prov:KARINA HUTSON 10/12/18 Reported Medications Hydrocodone/Acetaminophen ([place] 5-325 Tablet) 1 Each Tablet, 1 EACH PO NEEDED, TAB 10/10/18 Atorvastatin Calcium (Atorvastatin Calcium) 10 Mg Tablet, 10 MG PO QHS, #30 TAB 10/10/18 Levothyroxine Sodium* (Levothyroxine Sodium*) 88 Mcg Tablet, 88 MCG PO BEFORE BREAKFAST, #30 TAB 10/10/18 Gabapentin* (Gabapentin*) 300 Mg Capsule, 300 MG PO TID, #90 CAP 10/10/18 Docusate Sodium* (Colace*) 100 Mg Capsule, 100 MG PO BID, #60 CAP 10/10/18 Aspirin* (Aspirin* EC) 81 Mg Tablet.dr, 81 MG PO DAILY, TAB 10/10/18 Amlodipine Besylate* (Amlodipine Besylate*) 10 Mg Tablet, 10 MG PO DAILY, #30 TAB 10/10/18 Medications Current Medications IV Flush (NS 3 ml) 3 ml PER PROTOCOL IV ; Start 02/05/19 at 04:30 Ondansetron HCl (Zofran Inj) 4 mg Q6H PRN IV NAUSEA/VOMITING; Start 02/05/19 at 04:30 Acetaminophen (Tylenol Tab) 650 mg Q6H PRN PO .PAIN 1-3 OR TEMP; Start 02/05/19 at 04:30 Acetaminophen/ Hydrocodone Bitart ([place] (5/325)) 1 tab Q6H PRN PO .MOD PAIN 4- 6 Last administered on 02/05/19at 09:10; Admin Dose 1 TAB; Start 02/05/19 at 04:30 Acetaminophen/ Hydrocodone Bitart ([place] (5/325)) 2 tab Q6H PRN PO .SEVERE PAIN 7-10; Start 02/05/19 at 04:30 Amlodipine Besylate (Norvasc) 10 mg DAILY PO Last administered on 02/05/19at 08:56; Admin Dose 10 MG; Start 02/05/19 at 09:00 Aspirin (Halfprin) 81 mg DAILY PO Last administered on 02/05/19at 08:56; Admin Dose 81 MG; Start 02/05/19 at 09:00 Atorvastatin Calcium (Lipitor) 10 mg QHS PO ; Start 02/05/19 at 21:00 Docusate Sodium (Colace) 100 mg BID PO Last administered on 02/05/19at 08:55; Admin Dose 100 MG; Start 02/05/19 at 09:00 Gabapentin (Neurontin) 300 mg TID PO Last administered on 02/05/19at 08:56; Admin Dose 300 MG; Start 02/05/19 at 09:00 Levothyroxine Sodium (Synthroid) 88 mcg BEFORE BREAKFAST PO Last administered on 02/05/19at 06:24; Admin Dose 88 MCG; Start 02/05/19 at 07:00 Vancomycin HCl (Vanco Iv Per Pharmacy) VANCOMYCIN PER PHARMACY PER PROTOCOL XX ; Start 02/05/19 at 05:30 Ceftriaxone Sodium 50 ml @ 100 mls/hr DAILY IVPB Last administered on 02/05/19at 08:55; Admin Dose 100 MLS/HR; Start 02/05/19 at 09:00 Allergies: Coded Allergies: No Known Allergy (Unverified , 10/10/18) Past Surgical History Past Surgical Hx: other (See HPI) Social History Alcohol Use: none Smoking Status: Never smoker Drug Use: none Exam/Review of Systems Exam Vitals Vital Signs Date Temp Pulse Resp B/P (MAP) Pulse Ox O2 O2 Flow FiO2 Time Delivery Rate 02/05/19 97.7 58 18 167/67 95 Room Air 07:41 (100) Exam Non palpable DP/PT pulses Right non palpable popliteal pulse Left weakly palpable popliteal pulse Protective sensations intact Pain on palpation to bilateral digits Erythema to the right lower extremity digits Right 4th webspace partial thickness ulcer 1 x 1 x 0.1cm granular, maceration appreciated, no purulent drainage Muscle strength 4/5 bilateral feet in all compartments of the foot. Mycotic thickened toe nails, white scaling lesions in mocassin distribution. Foot X-ray IMPRESSION: 1. Cellulitis without evidence of osteomyelitis. 2. Mild degenerative narrowing of the intertarsal, tarsometatarsal, and interphalangeal joints. Moderate narrowing of the first metatarsophalangeal joint. 3. Plantar and posterior calcaneal enthesopathy changes. Results Result Diagram: 02/05/19 0143 02/05/19 0143 Results 24hrs Laboratory Tests Test 02/05/19 01:39 02/05/19 01:40 02/05/19 01:43 02/05/19 04:33 Bedside Glucose 98 POC Venous Lactate 0.7 White Blood Count 9.1 # Red Blood Count 4.44 Hemoglobin 13.5 Hematocrit 40.7 Mean Corpuscular 91.7 Volume Mean Corpuscular 30.4 Hemoglobin Mean Corpuscular 33.2 Hemoglobin Concent Red Cell 13.0 Distribution Width Platelet Count 255 # Mean Platelet Volume 11.1 H Immature 0.300 Granulocytes % Neutrophils % 65.1 Lymphocytes % 24.1 Monocytes % 8.1 Eosinophils % 2.0 Basophils % 0.4 Nucleated Red Blood 0.0 Cells % Immature 0.030 Granulocytes # Neutrophils # 5.9 Lymphocytes # 2.2 Monocytes # 0.7 Eosinophils # 0.2 Basophils # 0.0 Nucleated Red Blood 0.0 Cells # Erythrocyte 48 H Sedimentation Rate Prothrombin Time 13.1 Prothrombin Time 1.0 Ratio INR International 0.98 Normalized Ratio Activated 29.0 Partial Thromboplast Time Sodium Level 142 Potassium Level 4.4 Chloride Level 106 Carbon Dioxide Level 26 Anion Gap 10 Blood Urea Nitrogen 27 H Creatinine 0.81 Est Glomerular Filtrat Rate mL/min Glucose Level 101 Lactic Acid Level 1.1 1.1 Calcium Level 9.5 Total Bilirubin 0.4 Direct Bilirubin 0.00 Indirect Bilirubin 0.4 Aspartate Amino 23 Transf (AST/SGOT) Alanine 22 Aminotransferase (AL T/SGPT) Alkaline Phosphatase 88 Troponin I < 0.012 C-Reactive Protein 1.6 H Total Protein 7.9 Albumin 3.9 Globulin 4.00 H Albumin/Globulin 0.97 Ratio Thyroid Stimulating 4.100 Hormone (TSH) Medications Medication Current Medications IV Flush (NS 3 ml) 3 ml PER PROTOCOL IV ; Start 02/05/19 at 04:30 Ondansetron HCl (Zofran Inj) 4 mg Q6H PRN IV NAUSEA/VOMITING; Start 02/05/19 at 04:30 Acetaminophen (Tylenol Tab) 650 mg Q6H PRN PO .PAIN 1-3 OR TEMP; Start 02/05/19 at 04:30 Acetaminophen/ Hydrocodone Bitart ([place] (5/325)) 1 tab Q6H PRN PO .MOD PAIN 4- 6 Last administered on 02/05/19at 09:10; Admin Dose 1 TAB; Start 02/05/19 at 04:30 Acetaminophen/ Hydrocodone Bitart ([place] (5/325)) 2 tab Q6H PRN PO .SEVERE PAIN 7-10; Start 02/05/19 at 04:30 Amlodipine Besylate (Norvasc) 10 mg DAILY PO Last administered on 02/05/19 08:56; Admin Dose 10 MG; Start 02/05/19 at 09:00 Aspirin (Halfprin) 81 mg DAILY PO Last administered on 02/05/19 08:56; Admin Dose 81 MG; Start 02/05/19 at 09:00 Atorvastatin Calcium (Lipitor) 10 mg QHS PO ; Start 02/05/19 at 21:00 Docusate Sodium (Colace) 100 mg BID PO Last administered on 02/05/19 08:55; Admin Dose 100 MG; Start 02/05/19 at 09:00 Gabapentin (Neurontin) 300 mg TID PO Last administered on 02/05/19 08:56; Admin Dose 300 MG; Start 02/05/19 at 09:00 Levothyroxine Sodium (Synthroid) 88 mcg BEFORE BREAKFAST PO Last administered on 5/13/19at 06:24; Admin Dose 88 MCG; Start 02/05/19 at 07:00 Vancomycin HCl (Vanco Iv Per Pharmacy) VANCOMYCIN PER PHARMACY PER PROTOCOL XX ; Start 02/05/19 at 05:30 Ceftriaxone Sodium 50 ml @ 100 mls/hr DAILY IVPB Last administered on 02/05/19at 08:55; Admin Dose 100 MLS/HR; Start 02/05/19 at 09:00 GLADYS ZARATE DPM February 05, 2019 13:50
[2019-02-05 15:00] VITALS: BP 144/61; PULSE 66; RESP 18
[2019-02-05 19:55] VITALS: BP 163/72; PULSE 75; RESP 18
[2019-02-05] MEDS: ACETAMINOPHEN 325 MG TAB PO PRN (21:01)
[2019-02-05] MEDS: ATORVASTATIN 10 MG TAB PO SCH (21:01)
[2019-02-06] MEDS: ACETAMINOPHEN 325 MG TAB PO PRN (04:03)
[2019-02-06] MEDS: LEVOTHYROXINE 88 MCG TAB PO SCH (05:42)
[2019-02-06] MEDS: VANCOMYCIN 1 GM 250 ML IVPB SCH (05:42)
[2019-02-06 07:35] VITALS: BP 194/83; PULSE 69; RESP 20
[2019-02-06 07:36] VITALS: BP 204/88
[2019-02-06] MEDS: AMLODIPINE 10 MG TAB PO SCH (08:14)
[2019-02-06] MEDS: DOCUSATE SODIUM 100 MG CAP PO SCH ×2 (08:14→21:08)
[2019-02-06] MEDS: ASPIRIN (EC) 81 MG TAB PO SCH (08:14)
[2019-02-06] MEDS: CEFTRIAXONE 1 GM/50 ML (PMX) 50 ML IVPB SCH (08:15)
[2019-02-06] MEDS: GABAPENTIN 300 MG CAP PO SCH ×3 (08:16→21:08)
[2019-02-06 09:27] VITALS: BP 168/67; PULSE 69; RESP 20
[2019-02-06] MEDS: hydrALAzine 20 MG INJ IV PRN (09:44)
--- NOTE | 2019-02-06 12:47 | PN ---
Date/Time of Note Date/Time of Note DATE: 02/06/19 TIME: 12:44 Assessment/Plan VTE Prophylaxis Risk score (from Nsg)>0 risk: 4 SCD applied (from Nsg): Yes Pharmacological prophylaxis: LMWH Lines/Catheters IV Catheter Type (from Nrsg): [place] Assessment/Plan Hospital Course SUBJECTIVE: OBJECTIVE: Vital signs-see below PHYSICAL EXAM: Constitutional: Adequately built,not in acute distress. HEENT: Head atraumatic and normocephalic. Eyes: Extraocular muscles intact. Anicteric sclerae. Pupils equal bilaterally, reactive to light. NECK: Supple without lymph node. CHEST: Clear and good breath sounds equally. No wheezing. No rhonchi. HEART: S1, S2. Regular rate and rhythm. ABDOMEN: Soft/non tender with no rebound tenderness. Bowel sounds were present. EXTREMITIES: Rt foot edema/erythema/pain. Rt 4th/5th toe wound. NO palpable DP/PT pulse. NEUROLOGIC: Alert and oriented x3. No focal deficit. No sensory deficit. PSYCHOSOCIAL: No signs of depression. INTEGUMENTARY:+Fungal rashes groin. ASSESSMENT AND PLAN:83 yo F w/ severe PAD, recent left foot cellulitis,htn,dyslipidemia,neuropathy, hypothyroid admitted for Rt foot cellulitis.. Right foot cellulitis with rt 4th webspace ulceration -MRI right foot to r/o OM -ABX-ID consult -Wound care/podiatry follow-up -Follow-up cultures Severe PAD -Arterial studies noted, will call vascular consult -Continue to optimize neurovascular status with antihypertensives to keep blood pressure ~140/90, diet, nutrition, exercise, blood glucose control, and antiplatelets/anticoagulation. Hypertension -Poorly managed -Start losartan, continue amlodipine Tinea Cruris/corporis -We will treat this in anticipation for vascular intervention w/Lamisil dailyx 1week +Clotromazole cream Dyslipidemia -On statin Hypothyroidism -On Synthroid Neuropathy -On gabapentin DVT prophylaxis: Lovenox Disposition: Continue current management. Follow-up vascular/podiatry recommendations. Follow-up MRI findings. Patient was seen in colaboration with Result Diagram: 02/06/19 0434 02/06/19 0434 Results 24hrs Laboratory Tests Test 02/06/19 04:34 White Blood Count 8.3 Red Blood Count 4.19 L Hemoglobin 12.7 Hematocrit 39.4 Mean Corpuscular Volume 94.0 Mean Corpuscular Hemoglobin 30.3 Mean Corpuscular Hemoglobin Concent 32.2 Red Cell Distribution Width 13.1 Platelet Count 246 Mean Platelet Volume 11.1 H Immature Granulocytes % 0.200 Neutrophils % 65.9 Lymphocytes % 22.4 Monocytes % 8.3 Eosinophils % 2.6 Basophils % 0.6 Nucleated Red Blood Cells % 0.0 Immature Granulocytes # 0.020 Neutrophils # 5.5 Lymphocytes # 1.9 Monocytes # 0.7 Eosinophils # 0.2 Basophils # 0.1 Nucleated Red Blood Cells # 0.0 Sodium Level 141 Potassium Level 4.5 Chloride Level 105 Carbon Dioxide Level 27 Anion Gap 9 Blood Urea Nitrogen 31 H Creatinine 0.81 Est Glomerular Filtrat Rate mL/min Glucose Level 90 Hemoglobin A1c 5.1 Calcium Level 9.1 Phosphorus Level 4.7 Magnesium Level 2.1 Total Bilirubin 0.5 Direct Bilirubin 0.00 Indirect Bilirubin 0.5 Aspartate Amino Transf (AST/SGOT) 25 Alanine Aminotransferase (ALT/SGPT) 17 Alkaline Phosphatase 63 Total Protein 6.9 # Albumin 3.6 Globulin 3.30 H Albumin/Globulin Ratio 1.09 Triglycerides Level 154 H Cholesterol Level 122 LDL Cholesterol, Calculated 53 HDL Cholesterol 38 Cholesterol/HDL Ratio 3.2 Exam/Review of Systems Exam Vitals Vital Signs Date Temp Pulse Resp B/P (MAP) Pulse Ox O2 O2 Flow FiO2 Time Delivery Rate 02/06/19 69 20 168/67 94 09:27 (100) 02/06/19 98.8 07:35 02/05/19 Room Air 15:00 Intake and Output 02/05/19 02/05/19 02/06/19 1515:00 23:00 07:00 IntakeIntake Total 780 ml 240 ml BalanceBalance 780 ml 240 ml Results Results 24hrs Laboratory Tests Test 02/06/19 04:34 White Blood Count 8.3 Red Blood Count 4.19 L Hemoglobin 12.7 Hematocrit 39.4 Mean Corpuscular Volume 94.0 Mean Corpuscular Hemoglobin 30.3 Mean Corpuscular Hemoglobin Concent 32.2 Red Cell Distribution Width 13.1 Platelet Count 246 Mean Platelet Volume 11.1 H Immature Granulocytes % 0.200 Neutrophils % 65.9 Lymphocytes % 22.4 Monocytes % 8.3 Eosinophils % 2.6 Basophils % 0.6 Nucleated Red Blood Cells % 0.0 Immature Granulocytes # 0.020 Neutrophils # 5.5 Lymphocytes # 1.9 Monocytes # 0.7 Eosinophils # 0.2 Basophils # 0.1 Nucleated Red Blood Cells # 0.0 Sodium Level 141 Potassium Level 4.5 Chloride Level 105 Carbon Dioxide Level 27 Anion Gap 9 Blood Urea Nitrogen 31 H Creatinine 0.81 Est Glomerular Filtrat Rate mL/min Glucose Level 90 Hemoglobin A1c 5.1 Calcium Level 9.1 Phosphorus Level 4.7 Magnesium Level 2.1 Total Bilirubin 0.5 Direct Bilirubin 0.00 Indirect Bilirubin 0.5 Aspartate Amino Transf (AST/SGOT) 25 Alanine Aminotransferase (ALT/SGPT) 17 Alkaline Phosphatase 63 Total Protein 6.9 # Albumin 3.6 Globulin 3.30 H Albumin/Globulin Ratio 1.09 Triglycerides Level 154 H Cholesterol Level 122 LDL Cholesterol, Calculated 53 HDL Cholesterol 38 Cholesterol/HDL Ratio 3.2 Medications Medication Current Medications IV Flush (NS 3 ml) 3 ml PER PROTOCOL IV ; Start 02/05/19 at 04:30 Ondansetron HCl (Zofran Inj) 4 mg Q6H PRN IV NAUSEA/VOMITING; Start 02/05/19 at 04:30 Acetaminophen (Tylenol Tab) 650 mg Q6H PRN PO .PAIN 1-3 OR TEMP Last administered on 02/06/19at 04:03; Admin Dose 650 MG; Start 02/05/19 at 04:30 Acetaminophen/ Hydrocodone Bitart ([place] (5/325)) 1 tab Q6H PRN PO .MOD PAIN 4- 6 Last administered on 02/05/19at 09:10; Admin Dose 1 TAB; Start 02/05/19 at 04:30 Acetaminophen/ Hydrocodone Bitart ([place] (5/325)) 2 tab Q6H PRN PO .SEVERE PAIN 7-10; Start 02/05/19 at 04:30 Amlodipine Besylate (Norvasc) 10 mg DAILY PO Last administered on 02/06/19at 08:14; Admin Dose 10 MG; Start 02/05/19 at 09:00 Aspirin (Halfprin) 81 mg DAILY PO Last administered on 02/06/19at 08:14; Admin Dose 81 MG; Start 02/05/19 at 09:00 Atorvastatin Calcium (Lipitor) 10 mg QHS PO Last administered on 02/05/19at 21:01; Admin Dose 10 MG; Start 02/05/19 at 21:00 Docusate Sodium (Colace) 100 mg BID PO Last administered on 02/06/19 08:14; Admin Dose 100 MG; Start 02/05/19 at 09:00 Gabapentin (Neurontin) 300 mg TID PO Last administered on 02/06/19 08:16; Admin Dose 300 MG; Start 02/05/19 at 09:00 Levothyroxine Sodium (Synthroid) 88 mcg BEFORE BREAKFAST PO Last administered on 02/06/19 05:42; Admin Dose 88 MCG; Start 02/05/19 at 07:00 Vancomycin HCl (Vanco Iv Per Pharmacy) VANCOMYCIN PER PHARMACY PER PROTOCOL XX ; Start 02/05/19 at 05:30 Ceftriaxone Sodium 50 ml @ 100 mls/hr DAILY IVPB Last administered on 02/06 08:15; Admin Dose 100 MLS/HR; Start 02/05/19 at 09:00 Vancomycin HCl 250 ml @ 125 mls/hr Q24H IVPB Last administered on 02/06/19at 05:42; Admin Dose 125 MLS/HR; Start 02/06/19 at 06:00 Hydralazine HCl (Apresoline) 10 mg Q4H PRN IV SYSTOLIC BP> 160 Last administered on 02/06/19 09:44; Admin Dose 10 MG; Start 02/06/19 at 08:30 Losartan Potassium (Cozaar) 50 mg DAILY PO ; Start 02/06/19 at 09:30 JULY JOHNSON NP February 06, 2019 12:47
[2019-02-06 14:02] VITALS: BP 138/65; PULSE 76; RESP 20
[2019-02-06] MEDS: LOSARTAN 50 MG TAB PO SCH (14:34)
--- NOTE | 2019-02-06 14:36 | CONS ---
DATE OF ADMISSION: 02/05/2019 DATE OF CONSULTATION: 02/06/2019 REFERRING PHYSICIAN: Jeri Johnson NP; Dr. Alex Mehta. REASON FOR CONSULTATION: Right fifth toe ulcer and foot pain. HISTORY OF PRESENT ILLNESS: This is an 83-year-old woman. She is hypertensive, hypercholesterolemic . She has no history of diabetes. She has a history of peripheral arterial disease. She is admitte d with 3 days of pain in the right foot. She has an ulcer there between the fourth and fifth toes th at is very tender. It looks like a fissure between the toes. She had arterial duplex study done yes terday that shows she has bilateral superficial femoral artery stents. On the right, there is a whitney re in-stent stenosis distally. On the left there is another severe stenosis or occlusion with a singh sition from biphasic to monophasic flow within the stent. On the right there is monophasic flow all the way down. She has normal sensation in the toes, she is able to move them. She has edema and olman n especially around the fourth and fifth toe where the fissure is. PAST MEDICAL HISTORY: Again, is significant for hypertension, hypothyroidism, hyperlipidemia. Denie s any history of diabetes. She denies ever having smoked. MEDICATIONS: Consist of: 1. Losartan 2. Hydralazine. 3. Vancomycin. 4. Lipitor. 5. Norvasc. 6. Aspirin. 7. Colace. 8. Neurontin. 9. Ceftriaxone. 10. Levothyroxine. 11. Antifungal cream to the groin. She has a fungal infection in the groin, worse on the left than the right. ALLERGIES: No known drug allergies. IMPRESSION: Bilateral superficial femoral artery stents placed. She does not know where they were p laced or when. She does not report having any recent followup with the vascular doctor. She denies any other past surgical history. SOCIAL HISTORY: She is a nonsmoker. She does not drink or use any illicit drugs. She tells me she lives in assisted living, but apparently she lives at home. She has been in a SNF in the past. FAMILY HISTORY: Noncontributory. REVIEW OF SYSTEMS: She currently denies any chest pain or shortness of breath, nausea, vomiting, ana rrhea. No fever, no chills, no recent weight gain or weight loss. Before this pain in the foot [place], she was having a lot of pain with walking. She has had difficulty walking more than a few steps and that has been going on for a while but not sure exactly how long. PHYSICAL EXAMINATION: GENERAL: She is an elderly woman. She speaks Urdu and Azeri, but her Urdu is fine. VITAL SIGNS: She has been afebrile. Blood pressure is 168/67, heart rate 69, respiratory is 20, 94% sat on room air. NECK: She has 2+ carotid, radial and brachial pulses bilaterally. LUNGS: Clear. HEART: Regular rate and rhythm. ABDOMEN: Soft, nontender, nondistended. She is obese. She has a pretty bad fungal infection in the groin bilaterally. It is worse on the left than the right. Femoral pulses are hard to palpate, I g et 1+ at best, and I think it is probably because of her body habitus. Popliteal pulses not palpable in either leg. The DP and PT pulses are not palpable in either foot. Left foot has some dry eschar s. She has no pain. There is no edema, no erythema. On the right her foot is edematous and 1+ zelda ma. She is very tender when you touch the 4th and 5th toes. There is a fissure between the toes. I t has some black necrotic eschar and there is clearly a fissure there. There is a little bit of eryt cindy around it. There is some slight drainage. LABORATORY DATA: She had again the arterial studies showed right SFA severe stenosis distally. On t he left, the SFA is probably stenosis as well, but it is not an elevated velocity. There is a drop o ff between bi- and monophasic waveforms. She also has tibial disease bilaterally. Her sed rate is e levated at 48 which is consistent with a chronic right foot ulcer. White count is normal, platelet c ount is normal. Kidney function is normal. Coags are normal. Venous scan showed no DVT. IMPRESSION: Right foot ischemic ulcer between the 4th and 5th toes. She has a long history of perip heral arterial disease. She has an SFA stent that has a severe stenosis. She has fungal infection i n the groin unfortunately and there is some sign of cellulitis and infection around the ulcer on the fifth toe. I spoke with Jeri Johnson NP. I did recommend treating the wound with IV antibiotics curr ently and then transition to something p.o. We need to clear the groin infection, fungal infection b efore she can proceed with angiography as there is just too much infection in the groin and confirmed by getting an infection at the puncture site, but this is something clearly treatable. She needs th at SFA stent on the right re-angioplastied and so I would suggest sending her to SNF with antibiotics , wound care and antifungal cream for the groin and then in a week or 2, once the fungal infection is cleared all the way for an outpatient angiogram and intervention on the SFA stents. Dictated By: JAZ SCHILLING/DEISI Conf#: [id number] DID#: [id number] CC: ALEX MEHTA MD; JERI JOHNSON NP; GLADYS ZARATE;*End*
[2019-02-06] MEDS: TERBINAFINE 250 MG TAB PO SCH (14:38)
[2019-02-06] MEDS: CLOTRIMAZOLE 1% 30 GM CR TOP SCH ×2 (14:38→21:08)
[2019-02-06] MEDS: ENOXAPARIN 40 MG/0.4 ML SYG SC SCH (14:39)
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
[2019-02-06 19:44] VITALS: BP 153/69; PULSE 75; RESP 18
[2019-02-06] MEDS: ATORVASTATIN 10 MG TAB PO SCH (21:08)
[2019-02-07] MEDS: LEVOTHYROXINE 88 MCG TAB PO SCH (06:34)
[2019-02-07] MEDS: VANCOMYCIN 1 GM 250 ML IVPB SCH (06:35)
[2019-02-07 07:25] VITALS: BP 134/63; PULSE 68; RESP 20
[2019-02-07] MEDS ORDERED: IOHEXOL 100 ML ONE (08:23)
[2019-02-07] MEDS ORDERED: IOHEXOL 350MG/ML 50 ML BTL ONE (08:23)
[2019-02-07] MEDS ORDERED: SOD CHLORIDE 0.9% 100 ML ONE (08:23)
[2019-02-07] MEDS ORDERED: NEOMYC/POLYMYX/BACIT 30 GM OINT TOP SCH (09:00)
[2019-02-07] MEDS: CEFTRIAXONE 1 GM/50 ML (PMX) 50 ML IVPB SCH (09:18)
[2019-02-07] MEDS: DOCUSATE SODIUM 100 MG CAP PO SCH ×2 (09:18→21:21)
[2019-02-07] MEDS: AMLODIPINE 10 MG TAB PO SCH (09:19)
[2019-02-07] MEDS: TERBINAFINE 250 MG TAB PO SCH (09:19)
[2019-02-07] MEDS: ASPIRIN (EC) 81 MG TAB PO SCH (09:19)
[2019-02-07] MEDS: LOSARTAN 50 MG TAB PO SCH (09:19)
[2019-02-07] MEDS: GABAPENTIN 300 MG CAP PO SCH ×3 (09:27→21:21)
[2019-02-07] MEDS: ENOXAPARIN 40 MG/0.4 ML SYG SC SCH (09:27)
[2019-02-07] MEDS: CLOTRIMAZOLE 1% 30 GM CR TOP SCH ×2 (11:37→21:21)
[2019-02-07 14:00] VITALS: BP 165/68; PULSE 76; RESP 20
--- NOTE | 2019-02-07 14:06 | CONS ---
Assessment/Plan Assessment/Plan Hospital Course (Demo Recall) Patient is sleeping looks comfortable, no fevers overnight. No labs this morning. Microbiology: Blood cultures negative Right foot MRI revealed no evidence for osteomyelitis Antimicrobials: Vancomycin, Rocephin Physical examination: This is a fragile well-developed elderly woman who is in no distress. Head atraumatic normocephalic neck is supple chest rise symmetrical breath sounds diminished bases. Heart: S1-S2. Abdomen soft bowel sounds present. Extremities with right foot erythema and some cyanotic changes Assessment: 1. Right foot cellulitis with arterial ulceration 2. Severe peripheral arterial disease with a history of S if a stent 3. Hypertension 4. Tinea pedis 5. Fungal rash groin area Plan: Patient is being seen by vascular team and podiatry we will continue her on current antibiotics continue Lamisil and add topical nystatin Consultation Date/Type/Reason Admit Date/Time February 05, 2019 at 11:53 Initial Consult Date Type of Consult id Date/Time of Note DATE: 02/07/19 TIME: 14:05 Exam/Review of Systems Exam Vitals Vital Signs Date Temp Pulse Resp B/P (MAP) Pulse Ox O2 O2 Flow FiO2 Time Delivery Rate 02/07/19 98.0 76 20 165/68 96 14:00 (100) 02/05/19 Room Air 15:00 Intake and Output 02/06/19 02/06/19 02/07/19 1515:00 23:00 07:00 IntakeIntake Total 1260 ml 480 ml BalanceBalance 1260 ml 480 ml Results Result Diagram: 02/06/19 0434 02/07/19 0448 Results 24hrs Laboratory Tests Test 02/07/19 04:48 Sodium Level 142 Potassium Level 4.1 Chloride Level 109 Carbon Dioxide Level 27 Anion Gap 6 Blood Urea Nitrogen 29 H Creatinine 1.01 H Est Glomerular Filtrat Rate mL/min Glucose Level 92 Calcium Level 8.7 Medications Medication Current Medications IV Flush (NS 3 ml) 3 ml PER PROTOCOL IV ; Start 02/05/19 at 04:30 Ondansetron HCl (Zofran Inj) 4 mg Q6H PRN IV NAUSEA/VOMITING; Start 02/05/19 at 04:30 Acetaminophen (Tylenol Tab) 650 mg Q6H PRN PO .PAIN 1-3 OR TEMP Last administered on 02/06/19at 04:03; Admin Dose 650 MG; Start 02/05/19 at 04:30 Acetaminophen/ Hydrocodone Bitart ([place] (5/325)) 1 tab Q6H PRN PO .MOD PAIN 4- 6 Last administered on 02/05/19 09:10; Admin Dose 1 TAB; Start 02/05/19 at 04:30 Acetaminophen/ Hydrocodone Bitart ([place] (5/325)) 2 tab Q6H PRN PO .SEVERE PAIN 7-10; Start 02/05/19 at 04:30 Amlodipine Besylate (Norvasc) 10 mg DAILY PO Last administered on 02/07/19 09:19; Admin Dose 10 MG; Start 02/05/19 at 09:00 Aspirin (Halfprin) 81 mg DAILY PO Last administered on 02/07/19 09:19; Admin Dose 81 MG; Start 02/05/19 at 09:00 Atorvastatin Calcium (Lipitor) 10 mg QHS PO Last administered on 02/06/19 21:08; Admin Dose 10 MG; Start 02/05/19 at 21:00 Docusate Sodium (Colace) 100 mg BID PO Last administered on 02/07/19 09:18; Admin Dose 100 MG; Start 02/05/19 at 09:00 Gabapentin (Neurontin) 300 mg TID PO Last administered on 02/07/19 13:14; Admin Dose 300 MG; Start 02/05/19 at 09:00 Levothyroxine Sodium (Synthroid) 88 mcg BEFORE BREAKFAST PO Last administered on 02/07/19 06:34; Admin Dose 88 MCG; Start 02/05/19 at 07:00 Vancomycin HCl (Vanco Iv Per Pharmacy) VANCOMYCIN PER PHARMACY PER PROTOCOL XX ; Start 02/05/19 at 05:30 Ceftriaxone Sodium 50 ml @ 100 mls/hr DAILY IVPB Last administered on 02/07/19 09:18; Admin Dose 100 MLS/HR; Start 02/05/19 at 09:00 Vancomycin HCl 250 ml @ 125 mls/hr Q24H IVPB Last administered on 02/07/19 06:35; Admin Dose 125 MLS/HR; Start 02/06/19 at 06:00 Hydralazine HCl (Apresoline) 10 mg Q4H PRN IV SYSTOLIC BP> 160 Last administered on 02/06/19 09:44; Admin Dose 10 MG; Start 02/06/19 at 08:30 Losartan Potassium (Cozaar) 50 mg DAILY PO Last administered on 02/07/19at 09:19; Admin Dose 50 MG; Start 02/06/19 at 09:30 Clotrimazole (Lotrimin Cr) 1 applic BID TOP Last administered on 02/07/19at 11 :37; Admin Dose 1 APPLIC; Start 02/06/19 at 13:00 Terbinafine HCl (Lamisil) 250 mg DAILY PO Last administered on 02/07/19at 09:19; Admin Dose 250 MG; Start 02/06/19 at 14:30; Stop 02/13/19 at 14:29 Enoxaparin Sodium (Lovenox) 40 mg DAILY SC Last administered on 02/07/19at 09:27; Admin Dose 40 MG; Start 02/06/19 at 13:00 Miscellaneous Information (*Rx Drug Level Order Reminder*) VANCO TROUGH ON 01/24... 0500 ONCE XX ; Start 02/08/19 at 05:00; Stop 02/08/19 at 05:01 HARINI RAMIREZ NP February 07, 2019 14:06
--- NOTE | 2019-02-07 15:10 | PN ---
Date/Time of Note Date/Time of Note DATE: 02/07/19 TIME: 15:04 Assessment/Plan Lines/Catheters IV Catheter Type (from Nrsg): Peripheral IV Assessment/Plan Assessment/Plan R foot ischemic ulcer and cellulitis - improving with IV antibiotics and wound care CTA reviewed - multiple stents in both legs covering CARE PROVIDER / SFA with diffuse in stent stenosis in the right SFA with pop stenosis and 3 v runoff, patent on the left. Iliacs are patent. Femoral pulses are not palpable because they are stented bilaterally but are patent L groin fungal infection - slightly improved but still severe Wound care per Dr. Mays Please arrange for SNF for antibiotics and wound care until the L groin fungal rash has resolved at which time I will schedule for RLE angiogram / intervention via L groin puncture Subjective 24 Hr Interval Summary No new c/o. R foot pain has improved. She is able to sleep. Exam/Review of Systems Vital Signs Vitals Vital Signs Date Temp Pulse Resp B/P (MAP) Pulse Ox O2 O2 Flow FiO2 Time Delivery Rate 02/07/19 98.0 76 20 165/68 96 14:00 (100) 02/05/19 Room Air 15:00 Intake and Output 02/06/19 02/06/19 02/07/19 1515:00 23:00 07:00 IntakeIntake Total 1260 ml 480 ml BalanceBalance 1260 ml 480 ml Exam Free Text/Dictation R foot less edematous, erythema has improved and it is much less tender - the ulcer b/w the 4th and 5th toes is stable No pain or ulcers on the left foot Results Result Diagram: 02/06/19 0434 02/07/19 0448 JAZ ALEXANDER MD February 07, 2019 15:10
--- NOTE | 2019-02-07 15:19 | PN ---
Date/Time of Note Date/Time of Note DATE: 02/07/19 TIME: : Assessment/Plan VTE Prophylaxis Risk score (from Nsg)>0 risk: 5 SCD applied (from Nsg): Yes Pharmacological prophylaxis: LMWH Lines/Catheters IV Catheter Type (from Nrsg): Peripheral IV Assessment/Plan Hospital Course SUBJECTIVE: Complains of minimal right foot pain. OBJECTIVE: Physical Exam General: Adequately build 83 year-old female lying in bed in no apparent distress. HEENT: Normocephalic, atraumatic. Eyes: Anicteric sclerae, conjunctivae clear. ENT: Nasal septum midline, oral mucosa moist. Neck supple, no JVD noticed. Respiratory: Bilaterally diminished breath sounds. No use of accessory muscles of respiration. No adventitious breath sounds. Cardiovascular: S1, S2 heard. Regular rate and rhythm. Abdomen: Soft, nontender, and nondistended. Bowel sounds positive in all 4 quadrants. Genitourinary: Deferred. Extremities: No cyanosis, no clubbing. Bilateral toe onychomycosis. Ulcer between the fourth and fifth digit on the right foot. Neurologic: Cranial nerves II through XII grossly intact. The patient is awake, alert, and oriented. Labs & Vitals per chart ASSESSMENT & PLAN 83-year-old female with a severe peripheral artery disease, hypertension, dyslipidemia, neuropathy, and hypothyroidism, who came to the emergency room with right foot pain with redness and edema, who was admitted to inpatient setting for further treatment and evaluation. 1. Right lower extremity ischemic ulcer between 4th and 5th toes. -Being followed by podiatry and vascular surgery. -Right foot MRI negative for any osteomyelitis. 2. Right foot cellulitis. -Continue antimicrobials as per ID. -No evidence of any osteomyelitis. 3. Severe peripheral artery disease. -Being followed by vascular surgery. -Optimize neurovascular status. -Needs eventual vascular intervention. 4. Hypertension. -Continue antihypertensives. 5. Tinea pedis. -Continue antifungals. 6. Dyslipidemia. -Continue statins. 7. Hypothyroidism -Continue Synthroid. 8. Neuropathy. -Continue gabapentin. 9. 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 -Will obtain contrast-enhanced MRI. 10. Left groin area tinea corporis/tinea cruris. -Continue local antifungal therapy since the patient is anticipating vascular intervention. 11. Fluids, electrolytes, and nutrition. -Low-cholesterol diet. 12. DVT prophylaxis. -Subcutaneous Lovenox. 13. Plan. -Continue antimicrobials as per ID. -Order pancreatic enzymes to evaluate for any pseudocyst. The patient was in collaboration with Dr. Díaz. Result Diagram: 02/06/19 0434 02/07/19 0448 Results 24hrs Laboratory Tests Test 02/07/19 04:48 Sodium Level 142 Potassium Level 4.1 Chloride Level 109 Carbon Dioxide Level 27 Anion Gap 6 Blood Urea Nitrogen 29 H Creatinine 1.01 H Est Glomerular Filtrat Rate mL/min Glucose Level 92 Calcium Level 8.7 Exam/Review of Systems Exam Vitals Vital Signs Date Temp Pulse Resp B/P (MAP) Pulse Ox O2 O2 Flow FiO2 Time Delivery Rate 02/07/19 98.0 76 20 165/68 96 14:00 (100) 02/05/19 Room Air 15:00 Intake and Output 02/06/19 02/06/19 02/07/19 1414:59 22:59 06:59 IntakeIntake Total 1260 ml 480 ml BalanceBalance 1260 ml 480 ml Results Results 24hrs Laboratory Tests Test 02/07/19 04:48 Sodium Level 142 Potassium Level 4.1 Chloride Level 109 Carbon Dioxide Level 27 Anion Gap 6 Blood Urea Nitrogen 29 H Creatinine 1.01 H Est Glomerular Filtrat Rate mL/min Glucose Level 92 Calcium Level 8.7 Medications Medication Current Medications IV Flush (NS 3 ml) 3 ml PER PROTOCOL IV ; Start 02/05/19 at 04:30 Ondansetron HCl (Zofran Inj) 4 mg Q6H PRN IV NAUSEA/VOMITING; Start 02/05/19 at 04:30 Acetaminophen (Tylenol Tab) 650 mg Q6H PRN PO .PAIN 1-3 OR TEMP Last administered on 02/06/19at 04:03; Admin Dose 650 MG; Start 02/05/19 at 04:30 Acetaminophen/ Hydrocodone Bitart ([place] (5/325)) 1 tab Q6H PRN PO .MOD PAIN 4- 6 Last administered on 02/05/19at 09:10; Admin Dose 1 TAB; Start 02/05/19 at 04:30 Acetaminophen/ Hydrocodone Bitart ([place] (5/325)) 2 tab Q6H PRN PO .SEVERE PAIN 7-10; Start 02/05/19 at 04:30 Amlodipine Besylate (Norvasc) 10 mg DAILY PO Last administered on 02/07/19 09:19; Admin Dose 10 MG; Start 02/05/19 at 09:00 Aspirin (Halfprin) 81 mg DAILY PO Last administered on 02/07/19 09:19; Admin Dose 81 MG; Start 02/05/19 at 09:00 Atorvastatin Calcium (Lipitor) 10 mg QHS PO Last administered on 02/06/19 21:08; Admin Dose 10 MG; Start 02/05/19 at 21:00 Docusate Sodium (Colace) 100 mg BID PO Last administered on 02/07/19 09:18; Admin Dose 100 MG; Start 02/05/19 at 09:00 Gabapentin (Neurontin) 300 mg TID PO Last administered on 02/07/19 13:14; Admin Dose 300 MG; Start 02/05/19 at 09:00 Levothyroxine Sodium (Synthroid) 88 mcg BEFORE BREAKFAST PO Last administered on 02/07/19 06:34; Admin Dose 88 MCG; Start 02/05/19 at 07:00 Vancomycin HCl (Vanco Iv Per Pharmacy) VANCOMYCIN PER PHARMACY PER PROTOCOL XX ; Start 02/05/19 at 05:30 Ceftriaxone Sodium 50 ml @ 100 mls/hr DAILY IVPB Last administered on 02/07/19 09:18; Admin Dose 100 MLS/HR; Start 02/05/19 at 09:00 Vancomycin HCl 250 ml @ 125 mls/hr Q24H IVPB Last administered on 02/07/19 06:35; Admin Dose 125 MLS/HR; Start 02/06/19 at 06:00 Hydralazine HCl (Apresoline) 10 mg Q4H PRN IV SYSTOLIC BP> 160 Last adm inistered on 02/06/19 09:44; Admin Dose 10 MG; Start 02/06/19 at 08:30 Losartan Potassium (Cozaar) 50 mg DAILY PO Last administered on 02/07/19 09:19; Admin Dose 50 MG; Start 02/06/19 at 09:30 Clotrimazole (Lotrimin Cr) 1 applic BID TOP Last administered on 02/07/19 11:37; Admin Dose 1 APPLIC; Start 02/06/19 at 13:00 Terbinafine HCl (Lamisil) 250 mg DAILY PO Last administered on 02/07/19at 09:19; Admin Dose 250 MG; Start 02/06/19 at 14:30; Stop 02/13/19 at 14:29 Enoxaparin Sodium (Lovenox) 40 mg DAILY SC Last administered on 02/07/19at 09:27; Admin Dose 40 MG; Start 02/06/19 at 13:00 Miscellaneous Information (*Rx Drug Level Order Reminder*) VANCO TROUGH ON 01/24... 0500 ONCE XX ; Start 02/08/19 at 05:00; Stop 02/08/19 at 05:01 Nystatin (Nystatin Oint) 1 applic TID TOP ; Start 02/07/19 at 21:00 ALEXIA JOHNSON NP February 07, 2019 15:19
--- NOTE | 2019-02-07 17:38 | RADRPT ---
Echocardiogram Report Patient Name: ENMANUEL STYLESPatient ID: [id number] : 12 (83y 5m)Study Date: 02/06/2019 2:22:40 PM Gender: FAccession #: [id number] Tech: Bobbi Hanley [facility] Location: 2280 Ref.Physician: JULY JOHNSON Height(Cm): BSA: Weight(Kg): Quality: AdequateOrder Physician: JULY JOHNSON Account #: Procedures: Echocardiographic Report: Transthoracic echocardiogram with complete 2D, M-Mode, and doppler examination. Indications: Hypertension. Measurements: 2D/M Mode Doppler Measurement Value Normal Range Measurement Value Normal Range LVIDd 2D 3.8 [ 3.8 - 5.2 ] cm AV Peak Patrick 1.6 [ 100.0 - 170.0 ] cm/sec LVIDs 2D 2.3 [ 2.2 - 3.5 ] cm AV Peak PG 11.0 [ 2.0 - 9.0 ] mmHg LVPWd 2D 1.1 [ 0.6 - 0.9 ] cm LVOT Peak Patrick 1.2 [ 70.0 - 110.0 ] cm/sec IVSd 2D 1.0 [ 0.6 - 0.9 ] cm LVOT Peak PG 6.0 [ 2.0 - 6.0 ] mmHg AoR Diam 2D 2.9 [ 2.3 - 3.1 ] cm MV E Peak Patrick 0.7 [ 60.0 - 130.0 ] cm/sec EDV 2D 62.0 [ 46.0 - 106.0 ] ml MV A Peak Patrick 1.2 [ 100.0 - 120.0 ] cm/sec ESV 2D 17.7 [ 14.0 - 42.0 ] ml MV E/A 0.6 [ 0.8 - 1.5 ] ratio EF 2D 71.5 [ 54.0 - 74.0 ] percent MV Decel Time 169 [ 104 - 258 ] msec LA Dimen 2D 3.1 [ 2.7 - 3.8 ] cm Lat E` Patrick 0.1 [ 10.0 - 15.0 ] cm/sec Lateral E/E` 10.4 [ 1.0 - 2.0 ] ratio MV E/A 0.6 [ 0.8 - 1.5 ] ratio Findings: Left Ventricle: Normal left ventricular systolic function. Normal left ventricular cavity size. Mild concentric left ventricular hypertrophy. Ejection fraction is visually estimated at 60-65 %. Tissue Doppler/Mitral Doppler indices are consistent with impaired relaxation (Stage I diastolic dysfunction). Right Ventricle: Normal right ventricular size. Normal right ventricular systolic function. Left Atrium: The left atrium is normal in size. Right Atrium: The right atrium is normal in size. Mitral Valve: Normal appearance of the mitral valve. Mild mitral annular calcification. Trace mitral regurgitation. Aortic Valve: No significant aortic stenosis or insufficiency. Aortic cusps appear mildly calcified. Tricuspid Valve: Normal appearance of the tricuspid valve. Unable to obtain RVSP due to minimal presence of tricuspid regurgitation. Pulmonic Valve: Normal pulmonic valve appearance. Pericardium: Normal pericardium with no significant pericardial effusion. Aorta: Normal aortic root. IVC: Normal size and normal respiratory collapse consistent with normal right atrial pressure. Conclusions: Normal left ventricular systolic function. Normal left ventricular cavity size. Mild concentric left ventricular hypertrophy. Ejection fraction is visually estimated at 60-65 %. Tissue Doppler/Mitral Doppler indices are consistent with impaired relaxation (Stage I diastolic dysfunction). Normal appearance of the mitral valve. Mild mitral annular calcification. Trace mitral regurgitation. Normal appearance of the tricuspid valve. Unable to obtain RVSP due to minimal presence of tricuspid regurgitation. Electronically Signed By: Hemanth Roblero 2019-02-07 17:37:43 PDT
[2019-02-07 19:39] VITALS: BP 136/71; PULSE 71; RESP 18
[2019-02-07] MEDS: ATORVASTATIN 10 MG TAB PO SCH (21:21)
[2019-02-07] MEDS: NYSTATIN 15 GM OINT TOP SCH (21:22)
[2019-02-08 02:00] VITALS: BP 129/70; PULSE 63; RESP 18
[2019-02-08] MEDS: LEVOTHYROXINE 88 MCG TAB PO SCH (06:45)
[2019-02-08] MEDS: VANCOMYCIN 1 GM 250 ML IVPB SCH (06:45)
[2019-02-08 07:54] VITALS: BP 154/67; PULSE 71; RESP 18
[2019-02-08] MEDS: DOCUSATE SODIUM 100 MG CAP PO SCH ×2 (09:43→22:36)
[2019-02-08] MEDS: CEFTRIAXONE 1 GM/50 ML (PMX) 50 ML IVPB SCH (09:43)
[2019-02-08] MEDS: AMLODIPINE 10 MG TAB PO SCH (09:44)
[2019-02-08] MEDS: GABAPENTIN 300 MG CAP PO SCH ×3 (09:44→22:39)
[2019-02-08] MEDS: LOSARTAN 50 MG TAB PO SCH (09:44)
[2019-02-08] MEDS: CLOTRIMAZOLE 1% 30 GM CR TOP SCH ×2 (09:45→22:37)
[2019-02-08] MEDS: ASPIRIN (EC) 81 MG TAB PO SCH (09:45)
[2019-02-08] MEDS: TERBINAFINE 250 MG TAB PO SCH (09:45)
[2019-02-08] MEDS: NYSTATIN 15 GM OINT TOP SCH ×3 (09:45→22:45)
[2019-02-08] MEDS: ENOXAPARIN 40 MG/0.4 ML SYG SC SCH (09:49)
--- NOTE | 2019-02-08 12:47 | CONS ---
Assessment/Plan Assessment/Plan Hospital Course (Demo Recall) Patient is awake, looks comfortable, no fevers overnight. Right foot MRI revealed no evidence for osteomyelitis Antimicrobials: Vancomycin, Rocephin, topical antifungal Physical examination: This is a fragile well-developed elderly woman who is in no distress. Head atraumatic normocephalic neck is supple chest rise symmetrical breath sounds diminished bases. Heart: S1-S2. Abdomen soft bowel sounds present. Extremities with right foot erythema and some cyanotic changes Assessment: 1. Right foot cellulitis with arterial ulceration 2. Severe peripheral arterial disease with a history of stent 3. Hypertension 4. Tinea pedis 5. Fungal rash groin area Plan: Stable, vascular surgery recommendations noted, continue antibiotics plan for eventual angiogram with possible intervention once fungal excoriation completely resolved Consultation Date/Type/Reason Admit Date/Time February 05, 2019 at 11:53 Initial Consult Date Type of Consult id Date/Time of Note DATE: 02/08/19 TIME: 12:45 Exam/Review of Systems Exam Vitals Vital Signs Date Temp Pulse Resp B/P (MAP) Pulse Ox O2 O2 Flow FiO2 Time Delivery Rate 02/08/19 98.3 71 18 154/67 96 Room Air 07:54 (96) Intake and Output 02/07/19 02/07/19 02/08/19 1515:00 23:00 07:00 IntakeIntake Total 780 ml 720 ml OutputOutput Total 500 ml BalanceBalance 780 ml 220 ml Results Result Diagram: 02/08/19 0457 02/08/19 0457 Results 24hrs Laboratory Tests Test 02/08/19 04:57 White Blood Count 8.4 Red Blood Count 4.03 L Hemoglobin 12.3 Hematocrit 38.0 Mean Corpuscular Volume 94.3 Mean Corpuscular Hemoglobin 30.5 Mean Corpuscular Hemoglobin Concent 32.4 Red Cell Distribution Width 13.3 Platelet Count 242 Mean Platelet Volume 11.1 H Immature Granulocytes % 0.200 Neutrophils % 65.9 Lymphocytes % 22.8 Monocytes % 8.4 Eosinophils % 2.3 Basophils % 0.4 Nucleated Red Blood Cells % 0.0 Immature Granulocytes # 0.020 Neutrophils # 5.5 Lymphocytes # 1.9 Monocytes # 0.7 Eosinophils # 0.2 Basophils # 0.0 Nucleated Red Blood Cells # 0.0 Sodium Level 142 Potassium Level 4.1 Chloride Level 107 Carbon Dioxide Level 26 Anion Gap 9 Blood Urea Nitrogen 32 H Creatinine 0.93 Est Glomerular Filtrat Rate mL/min Glucose Level 91 Calcium Level 8.8 Phosphorus Level 4.4 Magnesium Level 2.2 Amylase Level 128 H Lipase 145 Vancomycin Level Trough 10.4 Medications Medication Current Medications IV Flush (NS 3 ml) 3 ml PER PROTOCOL IV ; Start 02/05/19 at 04:30 Ondansetron HCl (Zofran Inj) 4 mg Q6H PRN IV NAUSEA/VOMITING; Start 02/05/19 at 04:30 Acetaminophen (Tylenol Tab) 650 mg Q6H PRN PO .PAIN 1-3 OR TEMP Last administered on 02/06/19 04:03; Admin Dose 650 MG; Start 02/05/19 at 04:30 Acetaminophen/ Hydrocodone Bitart ([place] (5/325)) 1 tab Q6H PRN PO .MOD PAIN 4- 6 Last administered on 02/05/19 09:10; Admin Dose 1 TAB; Start 02/05/19 at 04:30 Acetaminophen/ Hydrocodone Bitart ([place] (5/325)) 2 tab Q6H PRN PO .SEVERE PAIN 7-10; Start 02/05/19 at 04:30 Amlodipine Besylate (Norvasc) 10 mg DAILY PO Last administered on 02/08/19 09:44; Admin Dose 10 MG; Start 02/05/19 at 09:00 Aspirin (Halfprin) 81 mg DAILY PO Last administered on 02/08/19 09:45; Admin Dose 81 MG; Start 02/05/19 at 09:00 Atorvastatin Calcium (Lipitor) 10 mg QHS PO Last administered on 02/07/19 21:21; Admin Dose 10 MG; Start 02/05/19 at 21:00 Docusate Sodium (Colace) 100 mg BID PO Last administered on 02/08/19 09:43; Admin Dose 100 MG; Start 02/05/19 at 09:00 Gabapentin (Neurontin) 300 mg TID PO Last administered on 02/08/19 09:44; Admin Dose 300 MG; Start 02/05/19 at 09:00 Levothyroxine Sodium (Synthroid) 88 mcg BEFORE BREAKFAST PO Last administered on 02/08/19 06:45; Admin Dose 88 MCG; Start 02/05/19 at 07:00 Vancomycin HCl (Vanco Iv Per Pharmacy) VANCOMYCIN PER PHARMACY PER PROTOCOL XX ; Start 02/05/19 at 05:30 Ceftriaxone Sodium 50 ml @ 100 mls/hr DAILY IVPB Last administered on 02/08/19 09:43; Admin Dose 100 MLS/HR; Start 02/05/19 at 09:00 Hydralazine HCl (Apresoline) 10 mg Q4H PRN IV SYSTOLIC BP> 160 Last administered on 02/06/19 09:44; Admin Dose 10 MG; Start 02/06/19 at 08:30 Losartan Potassium (Cozaar) 50 mg DAILY PO Last administered on 02/08/19 09:44; Admin Dose 50 MG; Start 02/06/19 at 09:30 Clotrimazole (Lotrimin Cr) 1 applic BID TOP Last administered on 02/08/19 09:45; Admin Dose 1 APPLIC; Start 02/06/19 at 13:00 Terbinafine HCl (Lamisil) 250 mg DAILY PO Last administered on 02/08/19 09:45; Admin Dose 250 MG; Start 02/06/19 at 14:30; Stop 02/13/19 at 14:29 Enoxaparin Sodium (Lovenox) 40 mg DAILY SC Last administered on 02/08/19 09:49; Admin Dose 40 MG; Start 02/06/19 at 13:00 Nystatin (Nystatin Oint) 1 applic TID TOP Last administered on 02/08/19 09:45; Admin Dose 1 APPLIC; Start 02/07/19 at 21:00 Vancomycin HCl 1.25 gm/Sodium Chloride 250 ml @ 83.333 mls/ hr Q24H IVPB ; Start 02/09/19 at 06:00 HARINI RAMIREZ NP February 08, 2019 12:47
[2019-02-08 14:10] VITALS: BP 149/66; PULSE 72; RESP 18
--- NOTE | 2019-02-08 16:28 | PN ---
Date/Time of Note Date/Time of Note DATE: 02/08/19 TIME: 16:26 Assessment/Plan VTE Prophylaxis Risk score (from Nsg)>0 risk: 3 SCD applied (from Nsg): Yes Pharmacological prophylaxis: LMWH Lines/Catheters IV Catheter Type (from Nrsg): Peripheral IV Assessment/Plan Hospital Course SUBJECTIVE: Complains of minimal right foot pain. OBJECTIVE: Physical Exam General: Adequately build 83 year-old female lying in bed in no apparent distress. HEENT: Normocephalic, atraumatic. Eyes: Anicteric sclerae, conjunctivae clear. ENT: Nasal septum midline, oral mucosa moist. Neck supple, no JVD noticed. Respiratory: Bilaterally diminished breath sounds. No use of accessory muscles of respiration. No adventitious breath sounds. Cardiovascular: S1, S2 heard. Regular rate and rhythm. Abdomen: Soft, nontender, and nondistended. Bowel sounds positive in all 4 quadrants. Genitourinary: Deferred. Extremities: No cyanosis, no clubbing. Bilateral toe onychomycosis. Ulcer between the fourth and fifth digit on the right foot. Neurologic: Cranial nerves II through XII grossly intact. The patient is awake, alert, and oriented. Labs & Vitals per chart ASSESSMENT & PLAN 83-year-old female with a severe peripheral artery disease, hypertension, dyslipidemia, neuropathy, and hypothyroidism, who came to the emergency room with right foot pain with redness and edema, who was admitted to inpatient setting for further treatment and evaluation. 1. Right lower extremity ischemic ulcer between 4th and 5th toes. -Being followed by podiatry and vascular surgery. -Right foot MRI negative for any osteomyelitis. 2. Right foot cellulitis. -Continue antimicrobials as per ID. -No evidence of any osteomyelitis. 3. Severe peripheral artery disease. -Being followed by vascular surgery. -Optimize neurovascular status. -Needs eventual vascular intervention. 4. Hypertension. -Continue antihypertensives. 5. Tinea pedis. -Continue antifungals. 6. Dyslipidemia. -Continue statins. 7. Hypothyroidism -Continue Synthroid. 8. Neuropathy. -Continue gabapentin. 9. 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 -Pancreatic enzymes within normal limits. -Will obtain contrast-enhanced MRI. 10. Left groin area tinea corporis/tinea cruris. -Continue local antifungal therapy since the patient is anticipating vascular intervention. 11. Fluids, electrolytes, and nutrition. -Low-cholesterol diet. 12. DVT prophylaxis. -Subcutaneous Lovenox. 13. Plan. -Continue antimicrobials as per ID. -Obtain contrast enhanced MRI to further evaluate the pancreatic cystic lesion. The patient was in collaboration with Dr. Díaz. Result Diagram: 02/08/19 0457 02/08/19 0457 Results 24hrs Laboratory Tests Test 02/08/19 04:57 White Blood Count 8.4 Red Blood Count 4.03 L Hemoglobin 12.3 Hematocrit 38.0 Mean Corpuscular Volume 94.3 Mean Corpuscular Hemoglobin 30.5 Mean Corpuscular Hemoglobin Concent 32.4 Red Cell Distribution Width 13.3 Platelet Count 242 Mean Platelet Volume 11.1 H Immature Granulocytes % 0.200 Neutrophils % 65.9 Lymphocytes % 22.8 Monocytes % 8.4 Eosinophils % 2.3 Basophils % 0.4 Nucleated Red Blood Cells % 0.0 Immature Granulocytes # 0.020 Neutrophils # 5.5 Lymphocytes # 1.9 Monocytes # 0.7 Eosinophils # 0.2 Basophils # 0.0 Nucleated Red Blood Cells # 0.0 Sodium Level 142 Potassium Level 4.1 Chloride Level 107 Carbon Dioxide Level 26 Anion Gap 9 Blood Urea Nitrogen 32 H Creatinine 0.93 Est Glomerular Filtrat Rate mL/min Glucose Level 91 Calcium Level 8.8 Phosphorus Level 4.4 Magnesium Level 2.2 Amylase Level 128 H Lipase 145 CA 19-9 Antigen 18.5 Vancomycin Level Trough 10.4 Exam/Review of Systems Exam Vitals Vital Signs Date Temp Pulse Resp B/P (MAP) Pulse Ox O2 O2 Flow FiO2 Time Delivery Rate 02/08/19 98.9 72 18 149/66 94 Room Air 14:10 (93) Intake and Output 02/07/19 02/07/19 02/08/19 1515:00 23:00 07:00 IntakeIntake Total 780 ml 720 ml OutputOutput Total 500 ml BalanceBalance 780 ml 220 ml Results Results 24hrs Laboratory Tests Test 02/08/19 04:57 White Blood Count 8.4 Red Blood Count 4.03 L Hemoglobin 12.3 Hematocrit 38.0 Mean Corpuscular Volume 94.3 Mean Corpuscular Hemoglobin 30.5 Mean Corpuscular Hemoglobin Concent 32.4 Red Cell Distribution Width 13.3 Platelet Count 242 Mean Platelet Volume 11.1 H Immature Granulocytes % 0.200 Neutrophils % 65.9 Lymphocytes % 22.8 Monocytes % 8.4 Eosinophils % 2.3 Basophils % 0.4 Nucleated Red Blood Cells % 0.0 Immature Granulocytes # 0.020 Neutrophils # 5.5 Lymphocytes # 1.9 Monocytes # 0.7 Eosinophils # 0.2 Basophils # 0.0 Nucleated Red Blood Cells # 0.0 Sodium Level 142 Potassium Level 4.1 Chloride Level 107 Carbon Dioxide Level 26 Anion Gap 9 Blood Urea Nitrogen 32 H Creatinine 0.93 Est Glomerular Filtrat Rate mL/min Glucose Level 91 Calcium Level 8.8 Phosphorus Level 4.4 Magnesium Level 2.2 Amylase Level 128 H Lipase 145 CA 19-9 Antigen 18.5 Vancomycin Level Trough 10.4 Medications Medication Current Medications IV Flush (NS 3 ml) 3 ml PER PROTOCOL IV ; Start 02/05/19 at 04:30 Ondansetron HCl (Zofran Inj) 4 mg Q6H PRN IV NAUSEA/VOMITING; Start 02/05/19 at 04:30 Acetaminophen (Tylenol Tab) 650 mg Q6H PRN PO .PAIN 1-3 OR TEMP Last administered on 02/06/19 04:03; Admin Dose 650 MG; Start 02/05/19 at 04:30 Acetaminophen/ Hydrocodone Bitart ([place] (5/325)) 1 tab Q6H PRN PO .MOD PAIN 4- 6 Last administered on 02/05/19 09:10; Admin Dose 1 TAB; Start 02/05/19 at 04:30 Acetaminophen/ Hydrocodone Bitart ([place] (5/325)) 2 tab Q6H PRN PO .SEVERE PAIN 7-10; Start 02/05/19 at 04:30 Amlodipine Besylate (Norvasc) 10 mg DAILY PO Last administered on 02/08/19 09:44; Admin Dose 10 MG; Start 02/05/19 at 09:00 Aspirin (Halfprin) 81 mg DAILY PO Last administered on 02/08/19 09:45; Admin Dose 81 MG; Start 02/05/19 at 09:00 Atorvastatin Calcium (Lipitor) 10 mg QHS PO Last administered on 02/07/19 21:21; Admin Dose 10 MG; Start 02/05/19 at 21:00 Docusate Sodium (Colace) 100 mg BID PO Last administered on 02/08/19 09:43; Admin Dose 100 MG; Start 02/05/19 at 09:00 Gabapentin (Neurontin) 300 mg TID PO Last administered on 02/08/19 13:33; Admin Dose 300 MG; Start 02/05/19 at 09:00 Levothyroxine Sodium (Synthroid) 88 mcg BEFORE BREAKFAST PO Last administered on 02/08/19 06:45; Admin Dose 88 MCG; Start 02/05/19 at 07:00 Vancomycin HCl (Vanco Iv Per Pharmacy) VANCOMYCIN PER PHARMACY PER PROTOCOL XX ; Start 02/05/19 at 05:30 Ceftriaxone Sodium 50 ml @ 100 mls/hr DAILY IVPB Last administered on 02/08/19 09:43; Admin Dose 100 MLS/HR; Start 02/05/19 at 09:00 Hydralazine HCl (Apresoline) 10 mg Q4H PRN IV SYSTOLIC BP> 160 Last administered on 02/06/19 09:44; Admin Dose 10 MG; Start 02/06/19 at 08:30 Losartan Potassium (Cozaar) 50 mg DAILY PO Last administered on 02/08/19 09:44; Admin Dose 50 MG; Start 02/06/19 at 09:30 Clotrimazole (Lotrimin Cr) 1 applic BID TOP Last administered on 02/08/19 09:45; Admin Dose 1 APPLIC; Start 02/06/19 at 13:00 Terbinafine HCl (Lamisil) 250 mg DAILY PO Last administered on 02/08/19 09:45; Admin Dose 250 MG; Start 02/06/19 at 14:30; Stop 02/13/19 at 14:29 Enoxaparin Sodium (Lovenox) 40 mg DAILY SC Last administered on 02/08/19 09:49; Admin Dose 40 MG; Start 02/06/19 at 13:00 Nystatin (Nystatin Oint) 1 applic TID TOP Last administered on 02/08/19 09:45; Admin Dose 1 APPLIC; Start 02/07/19 at 21:00 Vancomycin HCl 1.25 gm/Sodium Chloride 250 ml @ 83.333 mls/ hr Q24H IVPB ; Start 02/09/19 at 06:00 ALEXIA JOHNSON NP February 08, 2019 16:28
[2019-02-08 20:11] VITALS: BP 156/72; PULSE 77; RESP 19
[2019-02-08] MEDS: ATORVASTATIN 10 MG TAB PO SCH (21:00)
[2019-02-08] MEDS: BALSAM PERU/CASTOR OIL 60 GM TUBE TOP SCH (22:41)
[2019-02-09] MEDS ORDERED: VANCOMYCIN HCL 1.25 GM in SOD CHLORIDE 0.9% 250 ML IVPB SCH (06:00)
[2019-02-09 07:44] VITALS: BP 168/71; PULSE 72; RESP 17
[2019-02-09] MEDS: DOCUSATE SODIUM 100 MG CAP PO SCH (08:56)
[2019-02-09] MEDS: LOSARTAN 50 MG TAB PO SCH (08:56)
[2019-02-09] MEDS: ASPIRIN (EC) 81 MG TAB PO SCH (08:56)
[2019-02-09] MEDS: LEVOTHYROXINE 88 MCG TAB PO SCH (08:57)
[2019-02-09] MEDS: TERBINAFINE 250 MG TAB PO SCH (08:57)
[2019-02-09] MEDS: AMLODIPINE 10 MG TAB PO SCH (08:57)
[2019-02-09] MEDS: GABAPENTIN 300 MG CAP PO SCH ×3 (08:57→13:49)
[2019-02-09] MEDS: ENOXAPARIN 40 MG/0.4 ML SYG SC SCH (08:59)
[2019-02-09] MEDS: NYSTATIN 15 GM OINT TOP SCH ×2 (09:05→13:49)
[2019-02-09] MEDS: CLOTRIMAZOLE 1% 30 GM CR TOP SCH (09:05)
[2019-02-09] MEDS: BALSAM PERU/CASTOR OIL 60 GM TUBE TOP SCH (09:06)
[2019-02-09] MEDS: CEFTRIAXONE 1 GM/50 ML (PMX) 50 ML IVPB SCH (09:07)
[2019-02-09 11:13] VITALS: BP 134/97; PULSE 70
--- NOTE | 2019-02-09 12:21 | CONS ---
Assessment/Plan Assessment/Plan Hospital Course (Demo Recall) Patient is awake, looks comfortable, no fevers overnight. Right foot MRI revealed no evidence for osteomyelitis Antimicrobials: Vancomycin, Rocephin, topical antifungal Physical examination: This is a fragile well-developed elderly woman who is in no distress. Head atraumatic normocephalic neck is supple chest rise symmetrical breath sounds diminished bases. Heart: S1-S2. Abdomen soft bowel sounds present. Extremities with right foot erythema and some cyanotic changes Assessment: 1. Right foot cellulitis with arterial ulceration 2. Severe peripheral arterial disease with a history of stent 3. Hypertension 4. Tinea pedis 5. Fungal rash groin area Plan: Stable, vascular surgery recommendations noted, continue antibiotics plan for eventual angiogram with possible intervention once fungal excoriation completely resolved, ok dc on PO Levaquin and Doxycycline DW Dr Mays Consultation Date/Type/Reason Admit Date/Time February 05, 2019 at 11:53 Initial Consult Date Type of Consult id Date/Time of Note DATE: 02/09/19 TIME: 12:20 Exam/Review of Systems Exam Vitals Vital Signs Date Temp Pulse Resp B/P (MAP) Pulse Ox O2 O2 Flow FiO2 Time Delivery Rate 02/09/19 70 134/97 11:13 (109) 02/09/19 99.1 17 96 07:44 02/08/19 Room Air 14:10 Intake and Output 02/08/19 02/08/19 02/09/19 1515:00 23:00 07:00 IntakeIntake Total 900 ml 240 ml 83.333 ml BalanceBalance 900 ml 240 ml 83.333 ml Results Result Diagram: 02/09/19 0531 02/09/19 0531 Results 24hrs Laboratory Tests Test 02/09/19 05:31 White Blood Count 8.4 Red Blood Count 3.87 L Hemoglobin 11.9 L Hematocrit 36.4 L Mean Corpuscular Volume 94.1 Mean Corpuscular Hemoglobin 30.7 Mean Corpuscular Hemoglobin Concent 32.7 Red Cell Distribution Width 12.8 Platelet Count 244 Mean Platelet Volume 11.0 H Immature Granulocytes % 0.200 Neutrophils % 67.7 Lymphocytes % 20.5 Monocytes % 8.0 Eosinophils % 3.0 Basophils % 0.6 Nucleated Red Blood Cells % 0.0 Immature Granulocytes # 0.020 Neutrophils # 5.7 Lymphocytes # 1.7 Monocytes # 0.7 Eosinophils # 0.3 Basophils # 0.1 Nucleated Red Blood Cells # 0.0 Sodium Level 141 Potassium Level 4.2 Chloride Level 107 Carbon Dioxide Level 28 Anion Gap 6 Blood Urea Nitrogen 24 H Creatinine 0.81 Est Glomerular Filtrat Rate mL/min Glucose Level 94 Calcium Level 9.0 Phosphorus Level 4.1 Magnesium Level 2.2 Total Bilirubin 0.6 Direct Bilirubin 0.00 Indirect Bilirubin 0.6 Aspartate Amino Transf (AST/SGOT) 18 Alanine Aminotransferase (ALT/SGPT) 16 Alkaline Phosphatase 63 Total Protein 6.6 Albumin 3.3 Globulin 3.30 H Albumin/Globulin Ratio 1.00 Amylase Level 117 Lipase 120 Medications Medication Current Medications IV Flush (NS 3 ml) 3 ml PER PROTOCOL IV ; Start 02/05/19 at 04:30 Ondansetron HCl (Zofran Inj) 4 mg Q6H PRN IV NAUSEA/VOMITING; Start 02/05/19 at 04:30 Acetaminophen (Tylenol Tab) 650 mg Q6H PRN PO .PAIN 1-3 OR TEMP Last administered on 02/06/19at 04:03; Admin Dose 650 MG; Start 02/05/19 at 04:30 Acetaminophen/ Hydrocodone Bitart ([place] (5/325)) 1 tab Q6H PRN PO .MOD PAIN 4- 6 Last administered on 02/05/19at 09:10; Admin Dose 1 TAB; Start 02/05/19 at 04:30 Acetaminophen/ Hydrocodone Bitart ([place] (5/325)) 2 tab Q6H PRN PO .SEVERE PAIN 7-10; Start 02/05/19 at 04:30 Amlodipine Besylate (Norvasc) 10 mg DAILY PO Last administered on 02/09/19at 08:57; Admin Dose 10 MG; Start 02/05/19 at 09:00 Aspirin (Halfprin) 81 mg DAILY PO Last administered on 02/09/19 08:56; Admin Dose 81 MG; Start 02/05/19 at 09:00 Atorvastatin Calcium (Lipitor) 10 mg QHS PO Last administered on 02/07/19at 21:21; Admin Dose 10 MG; Start 02/05/19 at 21:00 Docusate Sodium (Colace) 100 mg BID PO Last administered on 02/09/19at 08:56; Admin Dose 100 MG; Start 02/05/19 at 09:00 Gabapentin (Neurontin) 300 mg TID PO Last administered on 02/09/19 08:57; Admin Dose 300 MG; Start 02/05/19 at 09:00 Levothyroxine Sodium (Synthroid) 88 mcg BEFORE BREAKFAST PO Last administered on 02/09/19 08:57; Admin Dose 88 MCG; Start 02/05/19 at 07:00 Vancomycin HCl (Vanco Iv Per Pharmacy) VANCOMYCIN PER PHARMACY PER PROTOCOL XX ; Start 02/05/19 at 05:30 Ceftriaxone Sodium 50 ml @ 100 mls/hr DAILY IVPB Last administered on 02/09/19 09:07; Admin Dose 100 MLS/HR; Start 02/05/19 at 09:00 Hydralazine HCl (Apresoline) 10 mg Q4H PRN IV SYSTOLIC BP> 160 Last administere d on 02/06/19 09:44; Admin Dose 10 MG; Start 02/06/19 at 08:30 Losartan Potassium (Cozaar) 50 mg DAILY PO Last administered on 02/09/19 08:56; Admin Dose 50 MG; Start 02/06/19 at 09:30 Clotrimazole (Lotrimin Cr) 1 applic BID TOP Last administered on 02/09/19 09:05; Admin Dose 1 APPLIC; Start 02/06/19 at 13:00 Terbinafine HCl (Lamisil) 250 mg DAILY PO Last administered on 02/09/19 08:57; Admin Dose 250 MG; Start 02/06/19 at 14:30; Stop 02/13/19 at 14:29 Enoxaparin Sodium (Lovenox) 40 mg DAILY SC Last administered on 02/09/19 08:59; Admin Dose 40 MG; Start 02/06/19 at 13:00 Nystatin (Nystatin Oint) 1 applic TID TOP Last administered on 02/09/19 09:05; Admin Dose 1 APPLIC; Start 02/07/19 at 21:00 Vancomycin HCl 1.25 gm/Sodium Chloride 250 ml @ 83.333 mls/ hr Q24H IVPB Last administered on 02/09/19 05:35; Admin Dose 83.333 MLS/HR; Start 02/09/19 at 06:00 HARINI RAMIREZ NP February 09, 2019 12:21
[2019-02-09] MEDS: DOXYCYCLINE 100 MG TAB PO SCH ×2 (12:30→13:48)
[2019-02-09] MEDS ORDERED: LEVOFLOXACIN 500 MG TAB PO ONE ×2 (13:00→14:00)
--- NOTE | 2019-02-09 14:09 | CONS ---
Assessment/Plan Assessment/Plan Assessment/Plan (Daily) Right lower extremity partial thickness arterial ulcer PAD Pain in limb HTN HLD Hypothyroidism Tinea Pedis Onychomycosis Plan: Reviewed MRI and abdominal angiography studies. Appreciate vascular recommendations. Patient will need vascular intervention once groin infection is improved. Continue with abx per ID recommendations. Betadine dressings to the right foot partial thickness wound site with dry sterile dressings. Recommend outpatient follow up in wound care clinic at [facility]. No surgical plans at this time. Consultation Date/Type/Reason Admit Date/Time February 05, 2019 at 11:53 Initial Consult Date Date/Time of Note DATE: 02/09/19 TIME: 14:09 24 HR Interval Summary Free Text/Dictation No acute events overnight. Exam/Review of Systems Exam Vitals Vital Signs Date Temp Pulse Resp B/P (MAP) Pulse Ox O2 O2 Flow FiO2 Time Delivery Rate 02/09/19 70 134/97 11:13 (109) 02/09/19 99.1 17 96 07:44 02/08/19 Room Air 14:10 Intake and Output 02/08/19 02/08/19 02/09/19 1515:00 23:00 07:00 IntakeIntake Total 900 ml 240 ml 83.333 ml BalanceBalance 900 ml 240 ml 83.333 ml Exam Non palpable DP/PT pulses Right non palpable popliteal pulse Left weakly palpable popliteal pulse Protective sensations intact Pain on palpation to bilateral digits Erythema to the right lower extremity digits Right 4th webspace partial thickness ulcer 1 x 1 x 0.1cm granular, maceration appreciated, no purulent drainage Muscle strength 4/5 bilateral feet in all compartments of the foot. Mycotic thickened toe nails, white scaling lesions in mocassin distribution. Foot X-ray IMPRESSION: 1. Cellulitis without evidence of osteomyelitis. 2. Mild degenerative narrowing of the intertarsal, tarsometatarsal, and interphalangeal joints. Moderate narrowing of the first metatarsophalangeal joint. 3. Plantar and posterior calcaneal enthesopathy changes. Foot MRI IMPRESSION: 1. No evidence of osteomyelitis. 2. Diffuse subcutaneous edema with more prominent/confluent subcutaneous fluid in the subcutaneous tissues dorsal to the bases of the metatarsals. 3. Hallux valgus and moderate degenerative change of the first MTP. Angiography IMPRESSION: 1. Diffuse severe atherosclerotic disease without abdominal aortic aneurysm or dissection. 2. Right external iliac artery patent containing proximal to mid stent followed by another distal stent. 3. Right lower extremity: - Right common femoral artery with patent stent. -Right superficial femoral artery with diffuse intra-stent narrowing with notable approximately 70% stenosis at the origin of the SFA and 70-80% stenosis in the mid to distal SFA. Approximately 70-80% stenosis of the very distal unstented SFA. -Right popliteal artery patent with severe approximately 70-80% stenosis along its proximal to mid segment. -Anterior tibial and dorsalis pedis arteries appear patent. -Severe stenosis of the tibioperoneal trunk with occlusion of the peroneal artery. -Severe stenosis of the proximal posterior tibial artery. 4. Left lower extremity: -Left common femoral artery patent with stent. -Left profunda femoral artery patent with approximately 70% stenosis just distal to its origin. -Left superficial femoral artery with diffuse intra-stent narrowing with notable approximately 60-70% stenosis proximally. -Left popliteal artery patent with approximately 50% stenosis proximally and 70% stenosis distally. -Patent three-vessel [id number] runoff with severe stenosis of the proximal peroneal artery. Dorsalis pedis artery appears patent. 5. Multiple gallstones. 2 mm stone in the distal CBD. No associated dilatation of the CBD. 6. 11 mm cystic lesion in the pancreatic head appears to be communicating with the pancreatic duct. Findings may represent an IPMN. Recommend further evalu ation with contrast enhanced MRI. Results Result Diagram: 02/09/19 0531 02/09/19 0531 Results 24hrs Laboratory Tests Test 02/09/19 05:31 White Blood Count 8.4 Red Blood Count 3.87 L Hemoglobin 11.9 L Hematocrit 36.4 L Mean Corpuscular Volume 94.1 Mean Corpuscular Hemoglobin 30.7 Mean Corpuscular Hemoglobin Concent 32.7 Red Cell Distribution Width 12.8 Platelet Count 244 Mean Platelet Volume 11.0 H Immature Granulocytes % 0.200 Neutrophils % 67.7 Lymphocytes % 20.5 Monocytes % 8.0 Eosinophils % 3.0 Basophils % 0.6 Nucleated Red Blood Cells % 0.0 Immature Granulocytes # 0.020 Neutrophils # 5.7 Lymphocytes # 1.7 Monocytes # 0.7 Eosinophils # 0.3 Basophils # 0.1 Nucleated Red Blood Cells # 0.0 Sodium Level 141 Potassium Level 4.2 Chloride Level 107 Carbon Dioxide Level 28 Anion Gap 6 Blood Urea Nitrogen 24 H Creatinine 0.81 Est Glomerular Filtrat Rate mL/min Glucose Level 94 Calcium Level 9.0 Phosphorus Level 4.1 Magnesium Level 2.2 Total Bilirubin 0.6 Direct Bilirubin 0.00 Indirect Bilirubin 0.6 Aspartate Amino Transf (AST/SGOT) 18 Alanine Aminotransferase (ALT/SGPT) 16 Alkaline Phosphatase 63 Total Protein 6.6 Albumin 3.3 Globulin 3.30 H Albumin/Globulin Ratio 1.00 Amylase Level 117 Lipase 120 Medications Medication Current Medications IV Flush (NS 3 ml) 3 ml PER PROTOCOL IV ; Start 02/05/19 at 04:30 Ondansetron HCl (Zofran Inj) 4 mg Q6H PRN IV NAUSEA/VOMITING; Start 02/05/19 at 04:30 Acetaminophen (Tylenol Tab) 650 mg Q6H PRN PO .PAIN 1-3 OR TEMP Last administered on 02/06/19 04:03; Admin Dose 650 MG; Start 02/05/19 at 04:30 Acetaminophen/ Hydrocodone Bitart ([place] (5/325)) 1 tab Q6H PRN PO .MOD PAIN 4- 6 Last administered on 02/05/19 09:10; Admin Dose 1 TAB; Start 02/05/19 at 04:30 Acetaminophen/ Hydrocodone Bitart ([place] (5/325)) 2 tab Q6H PRN PO .SEVERE PAIN 7-10; Start 02/05/19 at 04:30 Amlodipine Besylate (Norvasc) 10 mg DAILY PO Last administered on 02/09/19 08:57; Admin Dose 10 MG; Start 02/05/19 at 09:00 Aspirin (Halfprin) 81 mg DAILY PO Last administered on 02/09/19 08:56; Admin Dose 81 MG; Start 02/05/19 at 09:00 Atorvastatin Calcium (Lipitor) 10 mg QHS PO Last administered on 02/07/19 21:21; Admin Dose 10 MG; Start 02/05/19 at 21:00 Docusate Sodium (Colace) 100 mg BID PO Last administered on 02/09/19 08:56; Admin Dose 100 MG; Start 02/05/19 at 09:00 Gabapentin (Neurontin) 300 mg TID PO Last administered on 02/09/19 13:49; Admin Dose 300 MG; Start 02/05/19 at 09:00 Levothyroxine Sodium (Synthroid) 88 mcg BEFORE BREAKFAST PO Last administered on 02/09/19 08:57; Admin Dose 88 MCG; Start 02/05/19 at 07:00 Hydralazine HCl (Apresoline) 10 mg Q4H PRN IV SYSTOLIC BP> 160 Last administered on 02/06/19 09:44; Admin Dose 10 MG; Start 02/06/19 at 08:30 Losartan Potassium (Cozaar) 50 mg DAILY PO Last administered on 02/09/19 08:56; Admin Dose 50 MG; Start 02/06/19 at 09:30 Clotrimazole (Lotrimin Cr) 1 applic BID TOP Last administered on 02/09/19 09:05; Admin Dose 1 APPLIC; Start 02/06/19 at 13:00 Terbinafine HCl (Lamisil) 250 mg DAILY PO Last administered on 02/09/19 08:57; Admin Dose 250 MG; Start 02/06/19 at 14:30; Stop 02/13/19 at 14:29 Enoxaparin Sodium (Lovenox) 40 mg DAILY SC Last administered on 02/09/19 08:59; Admin Dose 40 MG; Start 02/06/19 at 13:00 Nystatin (Nystatin Oint) 1 applic TID TOP Last administered on 02/09/19at 13:49; Admin Dose 1 APPLIC; Start 02/07/19 at 21:00 Doxycycline Hyclate (Vibramycin) 100 mg BID PO Last administered on 02/09/19at 13:48; Admin Dose 100 MG; Start 02/09/19 at 12:30 Levofloxacin (Levaquin) 250 mg DAILY@06 PO ; Start 02/10/19 at 06:00 GLADYS ZARATE DPM February 09, 2019 14:09
[2019-02-09 14:14] VITALS: BP 178/74; PULSE 73; RESP 18
[2019-02-09] MEDS: hydrALAzine 20 MG INJ IV PRN ×2 (14:30→19:58)
[2019-02-09 15:00] VITALS: BP 164/68
--- NOTE | 2019-02-09 16:10 | PN ---
Date/Time of Note Date/Time of Note DATE: 02/09/19 TIME: 16:06 Assessment/Plan Lines/Catheters IV Catheter Type (from Nrsg): Peripheral IV Assessment/Plan Assessment/Plan R foot ischemia / ulcer - severe SFA stent stenosis Wound care per Dr. Davon Joseph groin fungal infection - continue antifungal creme OK for SNF transfer Followup with me in the office next week - I will schedule for RLE angiogram / intervention once the fungal infection in the groin has resolved Subjective 24 Hr Interval Summary No new c/o. No pain R foot unless it is touched near the wound. She is going to [facility] today. Exam/Review of Systems Vital Signs Vitals Vital Signs Date Temp Pulse Resp B/P (MAP) Pulse Ox O2 O2 Flow FiO2 Time Delivery Rate 02/09/19 97.6 73 18 178/74 96 Room Air 14:14 (108) Intake and Output 02/08/19 02/08/19 02/09/19 1515:00 23:00 07:00 IntakeIntake Total 900 ml 240 ml 83.333 ml BalanceBalance 900 ml 240 ml 83.333 ml Exam Free Text/Dictation R foot ischemia with ischemic ulcer b/w 4/5 toes unchanged, no erythema Normal motor and sensory function L groin fungal rash is improving Results Result Diagram: 02/09/19 0531 02/09/19 0531 JAZ ALEXANDER MD February 09, 2019 16:10
--- NOTE | 2019-02-09 18:09 | DS ---
Date/Time of Note Date/Time of Note DATE: 02/09/19 TIME: 18:02 Discharge Summary Admission/Discharge Info Admit Date/Time February 05, 2019 at 11:53 Discharge Date/Time Discharge Diagnosis 1. Right lower extremity ischemic ulcer between 4th and 5th toes. 2. Right foot cellulitis. 3. Severe peripheral artery disease. 4. Hypertension. 5. Tinea pedis. 6. Dyslipidemia. 7. Hypothyroidism 8. Neuropathy. 9. 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 Patient refused contrast-enhanced MRI. 10. Left groin area tinea corporis/tinea cruris. Patient Condition: Stable Consults 1. Hemanth Brewster MD, Vascular Surgery. 2. Patrick Mays DPM, Podiatry. 3. Estevan Ponce MD, Infectious Diseases. Procedures CTA Abdomen & Pelvis with B/L LE Run-off IMPRESSION: 1. Diffuse severe atherosclerotic disease without abdominal aortic aneurysm or dissection. 2. Right external iliac artery patent containing proximal to mid stent followed by another distal stent. 3. Right lower extremity: - Right common femoral artery with patent stent. -Right superficial femoral artery with diffuse intra-stent narrowing with notable approximately 70% stenosis at the origin of the SFA and 70-80% stenosis in the mid to distal SFA. Approximately 70-80% stenosis of the very distal unstented SFA. -Right popliteal artery patent with severe approximately 70-80% stenosis along its proximal to mid segment. -Anterior tibial and dorsalis pedis arteries appear patent. -Severe stenosis of the tibioperoneal trunk with occlusion of the peroneal artery. -Severe stenosis of the proximal posterior tibial artery. 4. Left lower extremity: -Left common femoral artery patent with stent. -Left profunda femoral artery patent with approximately 70% stenosis just distal to its origin. -Left superficial femoral artery with diffuse intra-stent narrowing with notable approximately 60-70% stenosis proximally. -Left popliteal artery patent with approximately 50% stenosis proximally and 70% stenosis distally. -Patent three-vessel [id number] runoff with severe stenosis of the proximal peroneal artery. Dorsalis pedis artery appears patent. 5. Multiple gallstones. 2 mm stone in the distal CBD. No associated dilatation of the CBD. 6. 11 mm cystic lesion in the pancreatic head appears to be communicating with the pancreatic duct. Findings may represent an IPMN. Recommend further evaluation with contrast enhanced MRI. Right Foot MRI IMPRESSION: 1. No evidence of osteomyelitis. 2. Diffuse subcutaneous edema with more prominent/confluent subcutaneous fluid in the subcutaneous tissues dorsal to the bases of the metatarsals. 3. Hallux valgus and moderate degenerative change of the first MTP. B/L LE Arterial Doppler Study IMPRESSION: 1. Severe focal stenosis in the right distal superficial femoral artery with associated stent. 2. Change from biphasic to monophasic wave form in the right proximal superficial femoral artery consistent with a significant stenosis. 3. Severely decreased right SHAYY. 4. Change from biphasic to monophasic wave form in the left distal superficial femoral artery consistent with a significant stenosis with associated stent. 5. Reduced left SHAYY. 2D Echocardiogram Conclusions: Normal left ventricular systolic function. Normal left ventricular cavity size. Mild concentric left ventricular hypertrophy. Ejection fraction is visually estimated at 60-65 %. Tissue Doppler/Mitral Doppler indices are consistent with impaired relaxation (Stage I diastolic dysfunction). Normal appearance of the mitral valve. Mild mitral annular calcification. Trace mitral regurgitation. Normal appearance of the tricuspid valve. Unable to obtain RVSP due to minimal presence of tricuspid regurgitation. Hx of Present Illness This is a 83-year-old female with a severe peripheral artery disease, hypertension, dyslipidemia, neuropathy, and hypothyroidism, who came to the emergency room with right foot pain with redness and edema, who was admitted to inpatient setting for further treatment and evaluation. Hospital Course Podiatry and vascular surgery consults were obtained. The patient was noticed to have severe peripheral vascular disease. Podiatry recommended local wound care. Vascular surgery recommended revascularization. However, the patient had tinea corporis/cruris of her groin area and needs to be treated before the vascular surgeon can access the vessels via groin. Therefore, the patient was started on therapy with antifungals including terbinafine and clotrimazole for a period of 7 days before the patient can be safely accessed for vascular interventions to the groin. The patient was also maintained on antibiotic therapy for cellulitis of her right foot. The patient was also noticed to have an ischemic ulcer between the fourth and fifth toes on the right side. The patient was maintained on local dressing changes as per podiatry. The patient has underlying hypertension. The patient's blood pressure was not optimally controlled. Therefore, the patient was also started on ARB is in addition to amlodipine. The patient had underlying tinea pedis. The patient was maintained on antifungals. The patient also had underlying bilateral lower extremity onychomycosis. She has underlying dyslipidemia. She was continued on statins for the same. She has underlying neuropathy. She was continued on gabapentin. Patient has underlying hypothyroidism. The patient was continued on Synthroid. The patient's CT scan of the abdomen and pelvis with bilateral lower extremity runoff showed a 11 mm cystic lesion in the pancreatic head concerning for IPMN. The patient's pancreatic enzymes were within normal limits. A contrast-enhanced MRI was ordered for evaluation for any IPMN. However, the patient refused the M RI. The patient needs vascular intervention once her groin area tinea corporis/cruris is resolved. Meanwhile, the patient will be transferred to a assisted facility where she can have local wound care before the patient can follow-up with the vascular surgeon's office for a lower extremity vascular surgery intervention. Therefore, the patient will be transferred to [facility] upon discharge. At this time I would like to thank all the consultants for seeing the patient a nd providing clinical recommendations. The patient was seen in collaboration with Dr. Díza. Home Meds Active Scripts Sulfamethoxazole/Trimethoprim* (Bactrim Ds* Tablet) 1 Each Tablet, 1 TAB PO BID, #14 TAB Prov:SUMANTH HUTSONP S. 10/12/18 Reported Medications Hydrocodone/Acetaminophen ([place] 5-325 Tablet) 1 Each Tablet, 1 EACH PO NEE DED, TAB 10/10/18 Atorvastatin Calcium (Atorvastatin Calcium) 10 Mg Tablet, 10 MG PO QHS, #30 TAB 10/10/18 Levothyroxine Sodium* (Levothyroxine Sodium*) 88 Mcg Tablet, 88 MCG PO BEFORE BREAKFAST, #30 TAB 10/10/18 Gabapentin* (Gabapentin*) 300 Mg Capsule, 300 MG PO TID, #90 CAP 10/10/18 Docusate Sodium* (Colace*) 100 Mg Capsule, 100 MG PO BID, #60 CAP 10/10/18 Aspirin* (Aspirin* EC) 81 Mg Tablet., 81 MG PO DAILY, TAB 10/10/18 Amlodipine Besylate* (Amlodipine Besylate*) 10 Mg Tablet, 10 MG PO DAILY, #30 TAB 10/10/18 Follow-up Plan Patient to follow-up with Dr. Garcia's office Primary Care Provider Not On Staff Doctor Time spent on discharge: > 30 minutes Pending Labs Laboratory Tests Test 02/09/19 05:31 White Blood Count 8.4 10^3/ul (4.8-10.8) Red Blood Count 3.87 10^6/ul (4.20-5.40) Hemoglobin 11.9 g/dl (12.0-16.0) Hematocrit 36.4 % (37.0-47.0) Mean Corpuscular Volume 94.1 fl (82.0-101.0) Mean Corpuscular Hemoglobin 30.7 pg (29.0-33.0) Mean Corpuscular Hemoglobin Concent 32.7 g/dl (32.0-37.0) Red Cell Distribution Width 12.8 % (11.5-14.5) Platelet Count 244 10^3/UL (140-415) Mean Platelet Volume 11.0 fl (7.4-10.4) Immature Granulocytes % 0.200 % (0.001-0.429) Neutrophils % 67.7 % (39.0-77.0) Lymphocytes % 20.5 % (15.0-51.0) Monocytes % 8.0 % (0.0-11.0) Eosinophils % 3.0 % (0.0-7.0) Basophils % 0.6 % (0.0-2.0) Nucleated Red Blood Cells % 0.0 /100WBC (0.0-0.0) Immature Granulocytes # 0.020 10^3/ul (0.0-0.031) Neutrophils # 5.7 10^3/ul (1.6-7.5) Lymphocytes # 1.7 10^3/ul (0.8-2.9) Monocytes # 0.7 10^3/ul (0.3-0.9) Eosinophils # 0.3 10^3/ul (0.0-0.5) Basophils # 0.1 10^3/ul (0.0-0.1) Nucleated Red Blood Cells # 0.0 10^3/ul (0.0-0.0) Sodium Level 141 mmol/L (135-144) Potassium Level 4.2 mmol/L (3.5-5.1) Chloride Level 107 mmol/L (97-110) Carbon Dioxide Level 28 mmol/L (21-31) Anion Gap 6 (5-13) Blood Urea Nitrogen 24 mg/dl (7-20) Creatinine 0.81 mg/dl (0.44-1.00) Est Glomerular Filtrat Rate mL/min mL/min (>60) Glucose Level 94 mg/dl (70-220) Calcium Level 9.0 mg/dl (8.4-10.2) Phosphorus Level 4.1 mg/dl (2.5-4.9) Magnesium Level 2.2 mg/dl (1.7-2.5) Total Bilirubin 0.6 mg/dl (0.2-1.3) Direct Bilirubin 0.00 mg/dl (0.00-0.20) Indirect Bilirubin 0.6 mg/dl (0-1.1) Aspartate Amino Transf (AST/SGOT) 18 IU/L (15-46) Alanine Aminotransferase (ALT/SGPT) 16 IU/L (13-69) Alkaline Phosphatase 63 IU/L (42-121) Total Protein 6.6 g/dl (6.1-8.1) Albumin 3.3 g/dl (3.3-4.9) Globulin 3.30 g/dl (1.3-3.2) Albumin/Globulin Ratio 1.00 Amylase Level 117 U/L (11-123) Lipase 120 U/L (23-300) ALEXIA JOHNSON NP February 09, 2019 18:09
[2019-02-09 19:20] VITALS: BP 152/92; PULSE 79; RESP 16
[2019-02-10] MEDS ORDERED: LEVOFLOXACIN 250 MG TAB PO SCH (06:00)
== END 2019-02-09 20:10 | DRG 300 ==
LOC: E/R 01:05 → 2NE 02:16 → OBSVTOIN 11:53
PROVIDERS: ADMIT Internal Medicine; ATTEND Internal Medicine
DX: I70.235 Atherosclerosis of native arteries of right leg with ulceration of other part of foot (principal); L03.115 Cellulitis of right lower limb; T82.856A Stenosis of peripheral vascular stent, initial encounter; K86.2 Cyst of pancreas; I10 Essential (primary) hypertension; E03.9 Hypothyroidism, unspecified; E78.5 Hyperlipidemia, unspecified; G62.9 Polyneuropathy, unspecified; I73.9 Peripheral vascular disease, unspecified; B35.3 Tinea pedis; B35.1 Tinea unguium; B35.4 Tinea corporis; B35.6 Tinea cruris
CPT/HCPCS: 36415; 73630; 73718; 75635; 80048; 80053; 80061; 80202; 82150; 82962; 83036; 83605; 83690; 83735; 84100; 84443; 84484; 85025; 85610; 85651; 85730; 86140; 86301; 93005; 93306; 93922; 93971; G0378; J0360; J0696; J1650; J2270; J2543; J3370; J7050; Q9967